=== PATIENT | female | born 1960 | race Caucasian/White ===

== ENCOUNTER 2020-10-08 15:59 | Inpatient (IN) | payer MEDICAID ==
[~2020-10-08] VITALS: Ht 160 cm; Wt 118.0 kg
--- NOTE | 2020-10-08 16:48 | RAD ---
XR CHEST 1V History: Reason: AMS / Spl. Instructions: / History: Comparison: None. Findings: Interstitial thickening. No pleural effusion. No pneumothorax. Right chest wall port. Enlarged cardia c size. Impression: 1. Diffuse interstitial thickening, can be seen with pulmonary edema although a component of chronic interstitial changes is possible. Electronically signed by: Isaac Hatfield DO (10/08/2020 4:46 PM) [id number]
[2020-10-08 16:52] LABS: BASO # 0.1 x10^3/uL (0.0-0.2); BASO % 1 % (0-3); EOS # 0.2 x10^3/uL (0.0-0.7); EOS % 3 % (0-3); HEMATOCRIT 35.6 % (36.0-47.0); HEMOGLOBIN 11.5 g/dL (12.0-15.5); LYMPH # 1.8 x10^3/uL (1.0-4.8); LYMPH % 25 % (24-48); MEAN CORPUSCULAR HEMOGLOBIN 29 pg (25-35); MEAN CORPUSCULAR HGB CONC 33 g/dL (31-37); MEAN CORPUSCULAR VOLUME 90 fL (79-100); MONO # 0.7 x10^3/uL (0.0-1.1); MONO % 10 % (0-9); NEUT # 4.4 x10^3/uL (1.8-7.7); NEUT % 61 % (31-73); PLATELET COUNT 176 x10^3/uL (140-400); RED BLOOD COUNT 3.95 x10^6/uL (3.50-5.40); WHITE BLOOD COUNT 7.3 x10^3/uL (4.0-11.0)
--- NOTE | 2020-10-08 16:56 | PHYS DOC ---
General Adult EDM: Chief Complaint: MULTIPLE COMPLAINTS HPI: HPI: Patient is a 59 year old female who presents with chronic cough, sore throat, chest pain, dizziness, syncope, urinary symptoms, left lower leg wounds with weeping and cellulitis, fatigue for the last month, pelvic pain, loss of smell, body aches, nausea vomiting, shortness of air most of which has been going on for last 1 to 2 weeks. Left lower leg is 2+ swollen compared to the right. Patient is always on 4 L of oxygen and she is 97% oxygen. She has neuropathy in bilateral lower legs. She has a history history of COPD, arthritis, hypertension, diabetes, bronchitis, cervical cancer, migraine, CVA, kidney disease, fibromyalgia, PE, DVT of which she is on Coumadin, stents in legs, cholecystectomy, sinuses, Port-A-Cath in the right chest. She rates her aching pelvic pain 9 out of 10. Review of Systems: Review of Systems: Constitutional: + fever or +chills. [] Eyes: Denies change in visual acuity. [] HENT: + nasal congestion or +sore throat. [] Respiratory: + cough or +shortness of breath. [] Cardiovascular: + chest pain or +edema. [] GI: +pelvic abdominal pain, +nausea, +vomiting, denies bloody stools or diarrhea. [] : +dysuria. [] Musculoskeletal: Denies back pain or joint pain. +Generalized bodyaches [] Integument: Denies rash. [] Neurologic: + headache, denies focal weakness or sensory changes. [] Endocrine: Denies polyuria or polydipsia. [] Lymphatic: Denies swollen glands. [] Psychiatric: + depression or +anxiety. [] Heart Score: HEART Score for Chest Pain: HEART Score for Chest Pain Response (Comments) Value History Slighlty/Non-Suspicious 0 ECG Nonspecific Repolarizatio 1 Age >45 - < 65 1 Risk Factors >3 Risk Factors or Hx CAD 2 Troponin < Normal Limit 0 Total 4 Risk Factors: Risk Factors: DM, Current or recent (<one month) smoker, HTN, HLP, family history of CAD, obesity. Risk Scores: Score 0 - 3: 2.5% MACE over next 6 weeks - Discharge Home Score 4 - 6: 20.3% MACE over next 6 weeks - Admit for Clinical Observation Score 7 - 10: 72.7% MACE over next 6 weeks - Early Invasive Strategies Allergies: Allergies: Allergies Coded Allergies Type Severity Reaction Last Updated Verified Penicillins Allergy Unknown UNKNOWN 10/08/20 Yes aspirin Allergy Unknown UNKNOWN 10/08/20 Yes ceftriaxone Allergy Unknown UNKNOWN 10/08/20 Yes Physical Exam: PE: Constitutional: Well developed, well nourished, no acute distress, non-toxic appearance. [] HENT: Normocephalic, atraumatic, bilateral external ears normal, oropharynx moist, no oral exudates, nose normal. Throat reddened[] Eyes: PERRLA, EOMI, conjunctiva normal, no discharge. [] Neck: Normal range of motion, no tenderness, supple, no stridor. [] Cardiovascular:Heart rate regular rhythm, no murmur [] Lungs & Thorax: Bilateral upper breath sounds clear and lower diminished to auscultation [] Abdomen: Bowel sounds normal, soft, no tenderness, no masses, no pulsatile m asses. [] Skin: Warm, dry, no erythema, no rash. Bilateral lower leg cellulitis, Left lower leg weeping clear fluid [] Back: No tenderness, no CVA tenderness. [] Extremities: No tenderness, no cyanosis, no clubbing, ROM intact, Left lower leg 2+ edema. [] Neurologic: Alert and oriented X 3, normal motor function, normal sensory function, no focal deficits noted. [] Psychologic: Affect normal, judgement normal, mood normal. [] EKG: EK and read by Dr Amaya as Sinus Rhythm and no STEMI Radiology/Procedures: Radiology/Procedures: [] Impression: [facility] [address] [place] [address] IMAGING REPORT Signed PATIENT: ELDA ANDREWS ACCOUNT: [id number] : 1960 LOCATION: ER AGE: 59 SEX: F EXAM STATUS: PRE ER ORD. PHYSICIAN: IBRAHIMA SALEH APRN REASON: AMS PROCEDURE: PORTABLE CHEST 1V XR CHEST 1V History: Reason: AMS / Spl. Instructions: / History: Comparison: None. Findings: Interstitial thickening. No pleural effusion. No pneumothorax. Right chest wall port. Enlarged cardiac size. Impression: 1. Diffuse interstitial thickening, can be seen with pulmonary edema although a component of chronic interstitial changes is possible. Electronically signed by: Isaac Hatfield DO (10/08/2020 4:46 PM) [id number] DICTATED and SIGNED BY: ISAAC HATFIELD DO DATE: 10/08/20 [id number] [facility] [address] [place] [address] IMAGING REPORT Signed PATIENT: ELDA ANDREWS ACCOUNT: [id number] : 1960 LOCATION: ER AGE: 59 SEX: F EXAM STATUS: REG ER ORD. PHYSICIAN: IBRAHIMA SALEH APRN REASON: swelling PROCEDURE: VENOUS LOWER EXTREMITY LEFT Examination: Left Lower Extremity Venous Doppler Ultrasound History: Left lower extremity swelling Comparison: None Procedure: Bailey scale, color flow 2D and spectal waveform analysis images are obtained with and without compression in the area of the common femoral vein, superficial femoral vein - femoral vein junction, main femoral vein (superficial femoral vein) and popliteal vein. Veins of the proximal calf are also imaged. Findings: There is normal duplex flow, color flow and compressibility of all visualized vein segments. No evidence of deep venous thrombus is present. Limited evaluation of the peroneal, posterior tibialis vein due to soft tissue edema. Impression: No evidence of DVT in the left lower extremity venous system.. Electronically signed by: Negro Pardo MD (10/08/2020 5:25 PM) [id number] DICTATED and SIGNED BY: NEGRO PARDO MD DATE: 10/08/20 [id number] [facility] [address] [place], [place] [id number] IMAGING REPORT Signed PATIENT: ELDA ANDREWS ACCOUNT: [id number] : 1960 LOCATION: ER AGE: 59 SEX: F EXAM STATUS: REG ER ORD. PHYSICIAN: IBRAHIMA SALEH APRN REASON: AMS, PUI PROCEDURE: CT HEAD WO CONTRAST EXAM: CT Head without IV contrast CLINICAL HISTORY: Altered mental status COMPARISON: None. TECHNIQUE: Routine CT of the head without contrast. PQRS compliance statement - One or more of the following individualized dose reduction techniques were utilized for this study: 1. Automated exposure control 2. Adjustment of the mA and/or kV according to patient size 3. Use of iterative reconstruction technique FINDINGS: There is no evidence of hemorrhage, mass or extra-axial fluid collection. Heaton-white differentiation is maintained with no evidence of edema. Subcortical, periventricular as well as deep white matter foci of hypoattenuation likely changes of chronic small vessel disease. Lacunar infarct left basal ganglia There is no mass effect or shift of the intracranial structures. The ventricles, basilar cisterns and cortical sulci are normal in size and configuration for the patients stated age. The cerebellum and brainstem are unremarkable. The calvarium demonstrates no evidence of fracture or focal lesion. There is normal aeration of the visualized paranasal sinuses and mastoid air cells. The visualized portions of the orbits are normal. IMPRESSION: 1. No evidence for acute intracranial process. 2. White matter changes, likely chronic small vessel disease. If there is clinical concern for superimposed acute infarct, MRI is recommended. Old lacunar infarct left basal ganglia. Electronically signed by: Rory Wheat MD (10/08/2020 6:47 PM) [facility] DICTATED and SIGNED BY: RORY WHEAT MD DATE: 10/08/20 [id number] [facility] [address] [place] [address] IMAGING REPORT Signed PATIENT: ELDA ANDREWS ACCOUNT: [id number] : 1960 LOCATION: ER AGE: 59 SEX: F EXAM STATUS: REG ER ORD. PHYSICIAN: IBRAHIMA SALEH APRN REASON: ABD PAIN, VOMITING, FEVER, PUI PROCEDURE: CT ABDOMEN PELVIS WO CONTRAST EXAM: CT Abdomen and Pelvis without IV contrast CLINICAL HISTORY: ABD PAIN, VOMITING, FEVER COMPARISON: none TECHNIQUE: Helical CT of the abdomen and pelvis was performed without the administration of IV contrast. Axial, coronal and sagittal reformatted images were generated. ---PQRS compliance statement - One or more of the following individualized dose reduction techniques were utilized for this study: 1. Automated exposure control 2. Adjustment of the mA and/or kV according to patient size 3. Use of iterative reconstruction technique--- FINDINGS: Lack of intravenous contrast limits evaluation of solid organs, vasculature, and lymph nodes. Lower chest: Linear and bandlike opacities lower lobes likely scarring/ate lectasis. Groundglass opacities dependently. Abdomen and pelvis: Visualized portions of the liver are grossly unremarkable. Accounting for postcholecystectomy change, no biliary ductal dilatation. Spleen is unremarkable. Adrenals are unremarkable. There has been a left nephrectomy. No focal right renal lesion. No right hydronephrosis or hydroureter. Bladder is unremarkable. No definite residual or recurrent mass within the surgical bed of the left kidney. A few small lymph nodes are seen in the retroperitoneum. Moderate colonic stool content is seen. No small or large bowel dilatation. No bowel obstruction. Appendix is normal. Small duodenal diverticulum is seen. Left common and external iliac vein stent is seen. Vascular collaterals are seen within the anterior pelvic wall. Fat-containing periumbilical hernia is seen. A left inguinal lymph node measures 2.9 x 1.5 cm. Enlarged right inguinal lymph nodes are also seen. 9 mm mesenteric lymph nodes are seen in the left lower quadrant. Bones: Mild degenerative changes of spine are seen. No aggressive osseous lesion. IMPRESSION: 1. Moderate to large volume colonic stool content can be correlated for possible constipation. No bowel obstruction. 2. Appendix is normal. 3. Fat-containing periumbilical hernia is seen. 4. Groundglass opacities dependently, particularly left lower lobe likely atelectasis or atypical infectious/proliferative process. 5. By the enlarged inguinal lymph nodes are nonspecific, possibly reactive. Electronically signed by: Rory Wheat MD (10/08/2020 6:54 PM) [facility] DICTATED and SIGNED BY: RORY WHEAT MD DATE: 10/08/20 [id number] Course & Med Decision Making: Course & Med Decision Making Pertinent Labs and Imaging studies reviewed. (See chart for details) COVID-19 CRITERIA: The patient was evaluated during the global COVID-19 pandemic, and that diagnosis was suspected/considered upon their initial presentation. Their evaluation, treatment and testing was consistent with current guidelines for patients who present with complaints or symptoms that may be related to COVID-19. See HPI. Alert and oriented x4. Speaks in full complete sentences. Pedal pulses present. Cap refill less than 2 seconds. Lungs are clear in upper lobes and diminished in lower lobes. Wounds on left lower leg look to been blisters that have popped and weeping clear fluid. Cellulitis bilateral lower legs. Left lower leg is 2+ edema. Throat is reddened but not swollen. X-ray impression: 1. Diffuse interstitial thickening, can be seen with pulmonary edema although a component of chronic interstitial changes is possible. Patient has never been here before therefore there are are no labs to look back in for lifetime summary. She does have known kidney disease and her kidney function is elevated. Urinalysis shows no infection. BNP is normal. Patient is given Solu-Medrol in the ED. I have spoken to Dr. Manzano for admission for left lower leg wound with cellulitis. I will consult ID and pulmonary. Dr Amaya states to start the patient on Zyvox. Ultrasound of the left lower extremity shows no DVT. [] Dragon Disclaimer: Dragon Disclaimer: This electronic medical record was generated, in whole or in part, using a voice recognition dictation system. COVID-19 Patient Risks: Age 65 or older: No Sign of co-morbidity: Yes Exp to person + for COVID: No Exp to PUI: No Travel from affected area: No Lower respiratory symptoms: Yes Fever: No Other: Yes (loss of smell, N,V, HEADACHE) PPE Use: Full PPE with N95 mask or PAPR: Yes Departure Departure Impression: Primary Impression: Person under investigation for COVID-19 Additional Impressions: Pneumonia Qualified Codes: J18.9 - Pneumonia, unspecified organism Cellulitis Qualified Codes: L03.116 - Cellulitis of left lower limb Disposition: 09 ADMITTED INPT THIS HOSP Admitting Physician: ARIEL Condition: STABLE IBRAHIMA SALEH CHEMISTRY INSTRUCTOR Oct 08, 2020 16:56
--- NOTE | 2020-10-08 17:27 | RAD ---
Examination: Left Lower Extremity Venous Doppler Ultrasound History: Left lower extremity swelling Comparison: None Procedure: Bailey scale, color flow 2D and spectal waveform analysis images are obtained with and witho ut compression in the area of the common femoral vein, superficial femoral vein - femoral vein juncti on, main femoral vein (superficial femoral vein) and popliteal vein. Veins of the proximal calf are a lso imaged. Findings: There is normal duplex flow, color flow and compressibility of all visualized vein segments. No evide nce of deep venous thrombus is present. Limited evaluation of the peroneal, posterior tibialis vein d ue to soft tissue edema. Impression: No evidence of DVT in the left lower extremity venous system.. Electronically signed by: Negro Luong MD (10/08/2020 5:25 PM) [id number]
[2020-10-08 17:33] LABS: CALCIUM 10.9 mg/dL (8.5-10.1); CREATININE 1.1 mg/dL (0.6-1.0); GFR 50.8; POTASSIUM 3.9 mmol/L (3.5-5.1)
[2020-10-08 17:39] LABS: ALBUMIN 3.2 g/dL (3.4-5.0); ALBUMIN/GLOBULIN RATIO 0.9 (1.0-1.7); TOTAL BILIRUBIN 0.3 mg/dL (0.2-1.0); TOTAL PROTEIN 6.9 g/dL (6.4-8.2)
[2020-10-08 17:39] LABS: BILIRUBIN,URINE NEGATIVE (NEG); CLARITY,URINE CLEAR; COLOR,URINE YELLOW; NITRITE,URINE NEGATIVE (NEG); PROTEIN,URINE NEGATIVE (NEG-TRACE)
[2020-10-08 17:44] LABS: BACTERIA,URINE MODERATE /HPF (0-FEW); RBC,URINE 0 /HPF (0-2); WBC,URINE OCC /HPF (0-4)
[2020-10-08 17:46] LABS: AMPHETAMINE/METHAMPHETAMINE NEG (NEG); BARBITURATES NEG (NEG); BENZODIAZEPINES NEG (NEG); CANNABINOIDS NEG (NEG); COCAINE NEG (NEG); METHADONE NEG (NEG); OPIATES NEG (NEG); PHENCYCLIDINE NEG (NEG)
[2020-10-08] MEDS ORDERED: methylPREDNISolone SOD SUCC PF 125 MG/2 ML VIAL. IV ONE (18:15)
[2020-10-08] MEDS ORDERED: ONDANSETRON PF 4 MG/2 ML VIAL. IV PRN (18:30)
[2020-10-08] MEDS ORDERED: guaiFENesin/CODEINE 100mg/10mg 5 ML LIQUID PO PRN (18:45)
[2020-10-08] MEDS ORDERED: ASPIRIN CHEWABLE 81 MG TABLET. PO ONE (18:45)
--- NOTE | 2020-10-08 18:50 | RAD ---
ADDENDUM #1 Addendum: Reformatted images using bone algorithm were now provided for evaluation. No calvarial fracture is seen. Thickening of the maxillary sinuses likely sinusitis. Electronically signed by: Rory Hendricks MD (10/08/2020 7:05 PM) [facility] ORIGINAL REPORT EXAM: CT Head without IV contrast CLINICAL HISTORY: Altered mental status COMPARISON: None. TECHNIQUE: Routine CT of the head without contrast. PQRS compliance statement - One or more of the following individualized dose reduction techniques wer e utilized for this study: 1. Automated exposure control 2. Adjustment of the mA and/or kV according to patient size 3. Use of iterative reconstruction technique FINDINGS: There is no evidence of hemorrhage, mass or extra-axial fluid collection. Heaton-white differentiation is maintained with no evidence of edema. Subcortical, periventricular as w ell as deep white matter foci of hypoattenuation likely changes of chronic small vessel disease. Lacu selena infarct left basal ganglia There is no mass effect or shift of the intracranial structures. The ventricles, basilar cisterns and cortical sulci are normal in size and configuration for the wilbert ents stated age. The cerebellum and brainstem are unremarkable. The calvarium demonstrates no evidence of fracture or focal lesion. There is normal aeration of the visualized paranasal sinuses and mastoid air cells. The visualized portions of the orbits are normal. IMPRESSION: 1. No evidence for acute intracranial process. 2. White matter changes, likely chronic small vessel disease. If there is clinical concern for super imposed acute infarct, MRI is recommended. Old lacunar infarct left basal ganglia. Electronically signed by: Rory Hendricks MD (10/08/2020 6:47 PM) JAKE
--- NOTE | 2020-10-08 18:57 | RAD ---
EXAM: CT Abdomen and Pelvis without IV contrast CLINICAL HISTORY: ABD PAIN, VOMITING, FEVER COMPARISON: none TECHNIQUE: Helical CT of the abdomen and pelvis was performed without the administration of IV contra st. Axial, coronal and sagittal reformatted images were generated. ---PQRS compliance statement - One or more of the following individualized dose reduction techniques were utilized for this study: 1. Automated exposure control 2. Adjustment of the mA and/or kV according to patient size 3. Use of iterative reconstruction technique--- FINDINGS: Lack of intravenous contrast limits evaluation of solid organs, vasculature, and lymph nodes. Lower chest: Linear and bandlike opacities lower lobes likely scarring/atelectasis. Groundglass opaci ties dependently. Abdomen and pelvis: Visualized portions of the liver are grossly unremarkable. Accounting for postcholecystectomy change, no biliary ductal dilatation. Spleen is unremarkable. Adrenals are unremarkable. There has been a le ft nephrectomy. No focal right renal lesion. No right hydronephrosis or hydroureter. Bladder is unrem arkable. No definite residual or recurrent mass within the surgical bed of the left kidney. A few sm all lymph nodes are seen in the retroperitoneum. Moderate colonic stool content is seen. No small or large bowel dilatation. No bowel obstruction. Lory endix is normal. Small duodenal diverticulum is seen. Left common and external iliac vein stent is seen. Vascular collaterals are seen within the anterior pelvic wall. Fat-containing periumbilical hernia is seen. A left inguinal lymph node measures 2.9 x 1.5 cm. Enlarg ed right inguinal lymph nodes are also seen. 9 mm mesenteric lymph nodes are seen in the left lower q uadrant. Bones: Mild degenerative changes of spine are seen. No aggressive osseous lesion. IMPRESSION: 1. Moderate to large volume colonic stool content can be correlated for possible constipation. No valerie wel obstruction. 2. Appendix is normal. 3. Fat-containing periumbilical hernia is seen. 4. Groundglass opacities dependently, particularly left lower lobe likely atelectasis or atypical in fectious/proliferative process. 5. By the enlarged inguinal lymph nodes are nonspecific, possibly reactive. Electronically signed by: Rory Hendricks MD (10/08/2020 6:54 PM) [facility]GIN[facility]
[2020-10-08] MEDS ORDERED: AZITHRMYCN 500MG IVPB FOR OMNI 250 ML IV ONE (19:00)
--- NOTE | 2020-10-08 19:40 | HP ---
ADMIT DATE: 10/08/2020 CHIEF COMPLAINT: Multiple complaints. HISTORY OF PRESENT ILLNESS: The patient is a pleasant, morbidly obese female who has many, many, many medical problems and sees many, many doctors. She brought in a list of all of her medical care. It is quite daunting. Basically, today she is now complaining of sore throat, cough, chest pain, dizziness, syncope, urinary symptoms, left lower leg wounds and fatigue for the past month. She also has some pelvic pain and loss of smell and body aches and nausea, vomiting, shortness of breath. This has been going on for 2 weeks. The left lower extremity is also swollen. Apparently, she wears 4 liters of oxygen at home. Clinically, we were concerned she could have COVID-19. We did a chest x-ray, which shows diffuse interstitial thickening. I discussed the case with ER physician. We are going to admit the patient and consult Infectious Disease and Pulmonary. PAST MEDICAL AND SURGICAL HISTORY: Morbid obesity, polypharmacy, probable psychiatric issues, allergic rhinitis, chronic sinusitis, chronic obstructive pulmonary disease, chronic respiratory failure and she is on home O2, UTI, asthma, hyperlipidemia, peripheral vascular disease, varicose veins, May-Thurner syndrome, recurrent DVT, peripheral vascular surgery 2 years ago with stenting, chronic migraines, polyneuropathy, cystitis, cataract surgery, laryngoscopy, lung biopsy, endometrial biopsy, nasal surgery, left nephrectomy, partial parathyroidectomy, chronic kidney disease stage 3, generalized anxiety disorder, major depression disorder, glucocorticoid deficiency, primary hyperparathyroidism, diabetes, tonsillectomy, hysterectomy, tympanoplasty, pulmonary embolism and Port-A-Cath placement and chronic anticoagulation and stents in both legs, cervical cancer. ALLERGIES: CEPHALEXIN, IODINE, PENICILLIN, SULFA, ADHESIVE TAPE, ASPIRIN, AZITHROMYCIN, BEE POLLEN, CEFTRIAXONE, CIPRO, CLARITHROMYCIN, CLINDAMYCIN, DOXYCYCLINE, ESTROGENS and there are many more. Please refer to the chart. FAMILY HISTORY: Hypertension, coronary artery disease, depression, breast cancer, COPD, CAD, diabetes, fibromyalgia, hyperlipidemia, hypertension, lung cancer, throat cancer, migraines. SOCIAL HISTORY: I do not think she drinks or takes drugs. I think she used to smoke. MEDICATIONS: Reviewed, please refer to the MRAD. REVIEW OF SYSTEMS: GENERAL: She complains of weakness. SKIN: No bruising, hair changes or rashes. EYES: No blurred, double or loss of vision. NOSE AND THROAT: No history of nosebleeds, hoarseness or sore throat. HEART: She complains of chest pain. LUNGS: She complains of shortness of breath and coughing. GASTROINTESTINAL: Denies changes in appetite, nausea, vomiting, diarrhea or constipation. GENITOURINARY: She complains of recent urinary symptoms consistent with possible urinary tract infection. NEUROLOGIC: She complains of dizziness and syncope. PSYCHIATRIC: No history of panic, anxiety or depression. ENDOCRINE: No history of heat or cold intolerance, polyuria or polydipsia. EXTREMITIES: She complains of left lower extremity swelling and weeping from chronic wounds. PHYSICAL EXAMINATION: VITALS: Within normal limits and are stable. GENERAL: She is weak and morbidly obese. HEENT: Normal cephalic atraumatic, external auditory canals are patent EYES: Extraocular muscles are intact, pupils are equally round and reactive to light and accommodation MUSCULOSKELETAL: Well developed, well nourished, good range of motion ENDOCRINE: No thyromegaly was palpated LYMPHATICS: No cervical chain or axillary nodes were noted HEMATOPOIETIC: No bruising NECK: Supple, no JVD, no thyromegaly was noted. LUNGS: She has bibasilar crackles. HEART: RRR, S1, S2 present. Peripheral pulses intact, no obvious murmurs were noted. ABDOMEN: Soft, nontender. Positive bowel sounds no organomegaly, normal bowel sounds. EXTREMITIES: She has a large wound that is dressed on the left lower extremity. NEUROLOGIC: Normal speech, normal tone. A & O x3, moves all extremities, no obvious focal deficits. PSYCHIATRIC: Normal affect, normal mood. Stable. SKIN: No ulcerations or rashes, good skin turgor, no jaundice. VASCULAR: Good capillary refill, neurovascular bundle appears to be intact. DIAGNOSTIC DATA: CT of the chest was just done. Results are pending. Lower extremity ultrasound is negative for DVT. Chest x-ray shows diffuse interstitial thickening. LABORATORY DATA: White count 7.3, hemoglobin 11.5, platelets 176. Electrolytes: Sodium 140, potassium 3.9, chloride 104, bicarbonate 31, BUN 28, creatinine 1.1, glucose 99, calcium 10.9. Troponin is 0. Urinalysis is negative. Drug screen negative. ASSESSMENT AND PLAN: Multiple complaints. We are concerned she could have COVID-19 as she does have a cough, shortness of breath, sore throat, weakness, nausea, vomiting and sometimes loss of her taste. The patient is being admitted. We will consult Infectious Disease, consult Pulmonary Medicine, swab her for COVID-19, p.r.n. Lilianafran. We started her on IV methylprednisolone. We will consider remdesivir if she tests positive. I will start other COVID protocol including IV antibiotics, vitamins, oxygen, cough syrup, aspirin, etc. DVT prophylaxis, p.r.n. Zofran, IV Zyvox. PROGNOSIS: Guarded. CC TIME: 33 minutes. TYRA SALES DO DR: KONSTANTIN/omari JOB#: [id number] / [id number]
[2020-10-08 21:12] VITALS: BP 142/92
--- NOTE | 2020-10-08 21:12 | NUR ---
The patient, ELDA ANDREWS, 59 y/o, F admitted by TYRA SALES III, DO, was given written information regarding hospital policies, unit procedures and contact persons. Valuables were checked and left with her.
--- NOTE | 2020-10-08 21:50 | NUR ---
Patient did not bring medication list to hospital. Patient states she will have her call in medication list in am.
[2020-10-08 23:00] VITALS: BP 157/67
[2020-10-09 00:31] LABS: INFLUENZA A PATIENT NEGATIVE (NEGATIVE); INFLUENZA B PATIENT NEGATIVE (NEGATIVE)
[2020-10-09 03:13] VITALS: BP 143/59
[2020-10-09 07:00] VITALS: BP 168/76
[2020-10-09] MEDS: MULTIVITAMIN with MINERAL TABLET. PO SCH (08:20)
--- NOTE | 2020-10-09 09:30 | PDOC ---
PULMONARY PROGRESS NOTES DATE: 10/09/20 TIME: 09:29 Vitals Vital Signs Date Time Temp Pulse Resp B/P (MAP) Pulse Ox O2 Delivery O2 Flow Rate FiO2 10/09/20 07:00 97.5 88 20 168/76 (106) Nasal Cannula 3.0 97.5 10/09/20 03:13 93 Labs Laboratory Tests Test 10/08/20 16:30 10/08/20 17:30 10/09/20 08:19 White Blood Count 7.3 x10^3/uL (4.0-11.0) Red Blood Count 3.95 x10^6/uL (3.50-5.40) Hemoglobin 11.5 g/dL (12.0-15.5) Hematocrit 35.6 % (36.0-47.0) Mean Corpuscular Volume 90 fL (79-100) Mean Corpuscular Hemoglobin 29 pg (25-35) Mean Corpuscular Hemoglobin Concent 33 g/dL (31-37) Red Cell Distribution Width 15.0 % (11.5-14.5) Platelet Count 176 x10^3/uL (140-400) Neutrophils (%) (Auto) 61 % (31-73) Lymphocytes (%) (Auto) 25 % (24-48) Monocytes (%) (Auto) 10 % (0-9) Eosinophils (%) (Auto) 3 % (0-3) Basophils (%) (Auto) 1 % (0-3) Neutrophils # (Auto) 4.4 x10^3/uL (1.8-7.7) Lymphocytes # (Auto) 1.8 x10^3/uL (1.0-4.8) Monocytes # (Auto) 0.7 x10^3/uL (0.0-1.1) Eosinophils # (Auto) 0.2 x10^3/uL (0.0-0.7) Basophils # (Auto) 0.1 x10^3/uL (0.0-0.2) Sodium Level 140 mmol/L (136-145) Potassium Level 3.9 mmol/L (3.5-5.1) Chloride Level 104 mmol/L (98-107) Carbon Dioxide Level 31 mmol/L (21-32) Anion Gap 5 (6-14) Blood Urea Nitrogen 28 mg/dL (7-20) Creatinine 1.1 mg/dL (0.6-1.0) Estimated GFR (Cockcroft-Gault) 50.8 BUN/Creatinine Ratio 25 (6-20) Glucose Level 99 mg/dL (70-99) Lactic Acid Level 0.9 mmol/L (0.4-2.0) Calcium Level 10.9 mg/dL (8.5-10.1) Total Bilirubin 0.3 mg/dL (0.2-1.0) Aspartate Amino Transf (AST/SGOT) 19 U/L (15-37) Alanine Aminotransferase (ALT/SGPT) 22 U/L (14-59) Alkaline Phosphatase 109 U/L (46-116) Troponin I Quantitative < 0.017 ng/mL (0.000-0.055) MI-Kgu-O-Type Natriuretic Peptide 34 pg/mL (0-124) Total Protein 6.9 g/dL (6.4-8.2) Albumin 3.2 g/dL (3.4-5.0) Albumin/Globulin Ratio 0.9 (1.0-1.7) Influenza Type A Antigen Negative (NEGATIVE) Influenza Type B Antigen Negative (NEGATIVE) Urine Collection Type U cath Urine Color Yellow Urine Clarity Clear Urine pH 6.0 (<5.0-8.0) Urine Specific [place] 1.020 (1.000-1.030) Urine Protein Negative mg/dL (NEG-TRACE) Urine Glucose (UA) Negative mg/dL (NEG) Urine Ketones (Stick) Negative mg/dL (NEG) Urine Blood Negative (NEG) Urine Nitrite Negative (NEG) Urine Bilirubin Negative (NEG) Urine Urobilinogen Dipstick 1.0 mg/dL (0.2 mg/dL) Urine Leukocyte Esterase Negative (NEG) Urine RBC 0 /HPF (0-2) Urine WBC Occ /HPF (0-4) Urine Squamous Epithelial Cells Mod /LPF Urine Bacteria Moderate /HPF (0-FEW) Urine Opiates Screen Neg (NEG) Urine Methadone Screen Neg (NEG) Urine Barbiturates Neg (NEG) Urine Phencyclidine Screen Neg (NEG) Urine Amphetamine/Methamphetamine Neg (NEG) Urine Benzodiazepines Screen Neg (NEG) Urine Cocaine Screen Neg (NEG) Urine Cannabinoids Screen Neg (NEG) Urine Ethyl Alcohol Neg (NEG) Glucose (Fingerstick) 174 mg/dL (70-99) Laboratory Tests Test 10/08/20 16:30 10/08/20 17:30 10/09/20 08:19 White Blood Count 7.3 x10^3/uL (4.0-11.0) Red Blood Count 3.95 x10^6/uL (3.50-5.40) Hemoglobin 11.5 g/dL (12.0-15.5) Hematocrit 35.6 % (36.0-47.0) Mean Corpuscular Volume 90 fL (79-100) Mean Corpuscular Hemoglobin 29 pg (25-35) Mean Corpuscular Hemoglobin Concent 33 g/dL (31-37) Red Cell Distribution Width 15.0 % (11.5-14.5) Platelet Count 176 x10^3/uL (140-400) Neutrophils (%) (Auto) 61 % (31-73) Lymphocytes (%) (Auto) 25 % (24-48) Monocytes (%) (Auto) 10 % (0-9) Eosinophils (%) (Auto) 3 % (0-3) Basophils (%) (Auto) 1 % (0-3) Neutrophils # (Auto) 4.4 x10^3/uL (1.8-7.7) Lymphocytes # (Auto) 1.8 x10^3/uL (1.0-4.8) Monocytes # (Auto) 0.7 x10^3/uL (0.0-1.1) Eosinophils # (Auto) 0.2 x10^3/uL (0.0-0.7) Basophils # (Auto) 0.1 x10^3/uL (0.0-0.2) Sodium Level 140 mmol/L (136-145) Potassium Level 3.9 mmol/L (3.5-5.1) Chloride Level 104 mmol/L (98-107) Carbon Dioxide Level 31 mmol/L (21-32) Anion Gap 5 (6-14) Blood Urea Nitrogen 28 mg/dL (7-20) Creatinine 1.1 mg/dL (0.6-1.0) Estimated GFR (Cockcroft-Gault) 50.8 BUN/Creatinine Ratio 25 (6-20) Glucose Level 99 mg/dL (70-99) Lactic Acid Level 0.9 mmol/L (0.4-2.0) Calcium Level 10.9 mg/dL (8.5-10.1) Total Bilirubin 0.3 mg/dL (0.2-1.0) Aspartate Amino Transf (AST/SGOT) 19 U/L (15-37) Alanine Aminotransferase (ALT/SGPT) 22 U/L (14-59) Alkaline Phosphatase 109 U/L (46-116) Troponin I Quantitative < 0.017 ng/mL (0.000-0.055) QI-Ntd-X-Type Natriuretic Peptide 34 pg/mL (0-124) Total Protein 6.9 g/dL (6.4-8.2) Albumin 3.2 g/dL (3.4-5.0) Albumin/Globulin Ratio 0.9 (1.0-1.7) Influenza Type A Antigen Negative (NEGATIVE) Influenza Type B Antigen Negative (NEGATIVE) Urine Collection Type U cath Urine Color Yellow Urine Clarity Clear Urine pH 6.0 (<5.0-8.0) Urine Specific [place] 1.020 (1.000-1.030) Urine Protein Negative mg/dL (NEG-TRACE) Urine Glucose (UA) Negative mg/dL (NEG) Urine Ketones (Stick) Negative mg/dL (NEG) Urine Blood Negative (NEG) Urine Nitrite Negative (NEG) Urine Bilirubin Negative (NEG) Urine Urobilinogen Dipstick 1.0 mg/dL (0.2 mg/dL) Urine Leukocyte Esterase Negative (NEG) Urine RBC 0 /HPF (0-2) Urine WBC Occ /HPF (0-4) Urine Squamous Epithelial Cells Mod /LPF Urine Bacteria Moderate /HPF (0-FEW) Urine Opiates Screen Neg (NEG) Urine Methadone Screen Neg (NEG) Urine Barbiturates Neg (NEG) Urine Phencyclidine Screen Neg (NEG) Urine Amphetamine/Methamphetamine Neg (NEG) Urine Benzodiazepines Screen Neg (NEG) Urine Cocaine Screen Neg (NEG) Urine Cannabinoids Screen Neg (NEG) Urine Ethyl Alcohol Neg (NEG) Glucose (Fingerstick) 174 mg/dL (70-99) Impression . Full note dictated Concur with current medical regimen See orders Pneumonia, acute exacerbation of asthma, possible pulmonary edema. MILY OVIEDO MD Oct 09, 2020 09:30
--- NOTE | 2020-10-09 09:54 | CONS ---
DATE OF CONSULTATION: 10/09/2020 ATTENDING PHYSICIAN: Dr. Manzano. CONSULTING PHYSICIAN: Mily Oviedo MD REASON FOR CONSULTATION: The patient is seen in pulmonary consultation at the request of Dr. Manzano for abnormal chest x-ray revealing bilateral infiltrates, increasing shortness of breath. HISTORY OF PRESENT ILLNESS: The patient is a 59-year-old with a complex past history, comorbidities of sarcoid diagnosed in 2000, status post mediastinoscopy. She was on steroids for some time. She has underlying COPD, fibromyalgia, previous recurrent DVT and pulmonary embolism. She normally sees several physicians at [facility]. She normally goes to [facility]. As a consequence of the COVID-19 situation, there were no beds available when she came to [facility]. She mainly has all sorts of different complaints of not feeling well, vomiting, and some diarrhea. Not much in regards with shortness of breath. She also had some chronic left lower lobe wounds with weeping areas on the skin. She has had chronic cellulitis. She presented with the above. She underwent venous Dopplers of the lower extremities, which revealed no evidence of DVT. She is currently on some antibiotics she was given. She underwent chest x-ray revealing diffuse interstitial markings compatible with pulmonary edema, possibly chronic interstitial lung disease. She had serology for influenza, which was negative. Her SARS-CoV-2 is pending. Her urine drug screen was negative. UA was noted. Electrolytes were noted. BUN and creatinine are elevated. Albumin was low. Calcium was high. White count was normal. She did not have a lymphopenia. The patient denies any SARS-CoV-2 exposures. PAST MEDICAL HISTORY: As indicated above, sarcoid diagnosed in 2000, status post mediastinoscopy, took steroids. She has underlying COPD, fibromyalgia, DVT, pulmonary embolism, recurrent, is on chronic Coumadin use. She has had previous migraines, previous CVA, hypertension, chronic bronchitis. Never smoked. She is normally on 4 liters of oxygen at home. PAST SURGICAL HISTORY: Status post cholecystectomy. She has a Port-A-Cath in the right chest area. No recent major surgeries. REVIEW OF SYSTEMS: CONSTITUTIONAL: Subjective fever and chills. EYES: No change in visual acuity. HENT: Some nasal congestion and sore throat. PULMONARY: As indicated above. CARDIOVASCULAR: Positive for chest pain. GASTROINTESTINAL: Some abdominal discomfort, nausea, vomiting. GENITOURINARY: She has had some dysuria. MUSCULOSKELETAL: Chronic pain. SKIN: No new skin rashes. NEUROLOGIC: She has chronic headaches. ALLERGIES: SHE HAS MULTIPLE ALLERGIES, PLEASE SEE LIST. FAMILY HISTORY: No family history of lung disorders. SOCIAL HISTORY: She is currently not smoking. PHYSICAL EXAMINATION: GENERAL: The patient appeared to be much older than stated age, currently on 3 liters of oxygen supplementation. HEENT: Eyes, the sclerae were nonicteric. NECK: Jugular venous distention could not be assessed secondary to body habitus. CHEST: Full expansion. LUNGS: Bilateral rhonchi. CARDIOVASCULAR: Regular rate and rhythm with S1, S2, no S3. ABDOMEN: Soft, obese. EXTREMITIES: Dressing in place, chronic cellulitis, chronic edema. NEUROLOGICAL: The patient was awake, alert, following commands. A detailed neuro exam was not performed. LABORATORY DATA: As indicated above. Chest x-ray as indicated above. IMPRESSION: 1. Abnormal x-ray revealing bilateral pulmonary infiltrates, some chronic in nature, possibly interstitial lung disease with concurrent acute pulmonary edema. 2. Chronic respiratory failure. 3. Sarcoid status post mediastinoscopy in 2000. 4. Fibromyalgia. 5. 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 6. Chronic lower extremity cellulitis with new onset of cellulitis. 7. Negative venous Dopplers of lower extremities. 8. Abnormal chest x-ray. 9. Morbid obesity. 10. Hypertension. 11. Diabetes. 12. History of migraine headaches. PLAN: 1. We will continue current support with IV antibiotics. 2. Oxygen supplementation. 3. Follow up on SARS-CoV-2 testing. 4. Continue home Coumadin. 5. Empiric antibiotics for both gram-positive and gram-negative organisms. I do appreciate the privilege in sharing in the patient's care. MILY OVIEDO MD DR: JAGRUTI/omari JOB#: [id number] / [id number]
--- NOTE | 2020-10-09 10:29 | PDOC ---
Infectious Disease Note Vital Signs: Vital Signs Vital Signs Date Time Temp Pulse Resp B/P (MAP) Pulse Ox O2 Delivery O2 Flow Rate FiO2 10/09/20 07:00 97.5 88 20 168/76 (106) Nasal Cannula 3.0 97.5 10/09/20 03:13 93 Medications: Inpatient Meds: Current Medications Medications (Trade) Dose Ordered Sig/Linda Start Time Stop Time Status Last Admin Dose Admin Albuterol/ Ipratropium (Duoneb) 3 ml RTQID 10/09/20 12:00 Aspirin (Aspirin Chewable) 81 mg 1X ONCE 10/08/20 18:45 10/08/20 18:46 UNV Azithromycin 250 ml @ 250 mls/hr 1X ONCE 10/08/20 19:00 10/08/20 19:59 DC Azithromycin 500 mg/Sodium Chloride 250 ml @ 250 mls/hr Q24H 10/09/20 20:00 Guaifenesin/ Codeine Phosphate (Robitussin Ac) 5 ml PRN Q6HRS PRN 10/08/20 18:45 Linezolid/Dextrose 300 ml @ 300 mls/hr Q12HR 10/09/20 11:00 Methylprednisolone Sodium Succinate (SOLU-Medrol 40MG VIAL) 62.5 mg BID 10/09/20 10:30 Methylprednisolone Sodium Succinate (SOLU-Medrol 125MG VIAL) 90 mg 1X ONCE 10/08/20 18:15 10/08/20 18:16 DC 10/08/20 18:44 90 MG Multivitamins (Thera M Plus) 1 tab DAILY 10/09/20 09:00 10/09/20 08:20 1 TAB Ondansetron HCl (Zofran) 4 mg PRN Q8HRS PRN 10/08/20 18:30 10/09/20 18:29 Labs: Lab Laboratory Tests Test 10/08/20 16:30 10/08/20 17:30 10/09/20 08:19 White Blood Count 7.3 x10^3/uL (4.0-11.0) Red Blood Count 3.95 x10^6/uL (3.50-5.40) Hemoglobin 11.5 g/dL (12.0-15.5) Hematocrit 35.6 % (36.0-47.0) Mean Corpuscular Volume 90 fL (79-100) Mean Corpuscular Hemoglobin 29 pg (25-35) Mean Corpuscular Hemoglobin Concent 33 g/dL (31-37) Red Cell Distribution Width 15.0 % (11.5-14.5) Platelet Count 176 x10^3/uL (140-400) Neutrophils (%) (Auto) 61 % (31-73) Lymphocytes (%) (Auto) 25 % (24-48) Monocytes (%) (Auto) 10 % (0-9) Eosinophils (%) (Auto) 3 % (0-3) Basophils (%) (Auto) 1 % (0-3) Neutrophils # (Auto) 4.4 x10^3/uL (1.8-7.7) Lymphocytes # (Auto) 1.8 x10^3/uL (1.0-4.8) Monocytes # (Auto) 0.7 x10^3/uL (0.0-1.1) Eosinophils # (Auto) 0.2 x10^3/uL (0.0-0.7) Basophils # (Auto) 0.1 x10^3/uL (0.0-0.2) Sodium Level 140 mmol/L (136-145) Potassium Level 3.9 mmol/L (3.5-5.1) Chloride Level 104 mmol/L (98-107) Carbon Dioxide Level 31 mmol/L (21-32) Anion Gap 5 (6-14) Blood Urea Nitrogen 28 mg/dL (7-20) Creatinine 1.1 mg/dL (0.6-1.0) Estimated GFR (Cockcroft-Gault) 50.8 BUN/Creatinine Ratio 25 (6-20) Glucose Level 99 mg/dL (70-99) Lactic Acid Level 0.9 mmol/L (0.4-2.0) Calcium Level 10.9 mg/dL (8.5-10.1) Total Bilirubin 0.3 mg/dL (0.2-1.0) Aspartate Amino Transf (AST/SGOT) 19 U/L (15-37) Alanine Aminotransferase (ALT/SGPT) 22 U/L (14-59) Alkaline Phosphatase 109 U/L (46-116) Troponin I Quantitative < 0.017 ng/mL (0.000-0.055) MM-Znm-U-Type Natriuretic Peptide 34 pg/mL (0-124) Total Protein 6.9 g/dL (6.4-8.2) Albumin 3.2 g/dL (3.4-5.0) Albumin/Globulin Ratio 0.9 (1.0-1.7) Influenza Type A Antigen Negative (NEGATIVE) Influenza Type B Antigen Negative (NEGATIVE) Urine Collection Type U cath Urine Color Yellow Urine Clarity Clear Urine pH 6.0 (<5.0-8.0) Urine Specific [place] 1.020 (1.000-1.030) Urine Protein Negative mg/dL (NEG-TRACE) Urine Glucose (UA) Negative mg/dL (NEG) Urine Ketones (Stick) Negative mg/dL (NEG) Urine Blood Negative (NEG) Urine Nitrite Negative (NEG) Urine Bilirubin Negative (NEG) Urine Urobilinogen Dipstick 1.0 mg/dL (0.2 mg/dL) Urine Leukocyte Esterase Negative (NEG) Urine RBC 0 /HPF (0-2) Urine WBC Occ /HPF (0-4) Urine Squamous Epithelial Cells Mod /LPF Urine Bacteria Moderate /HPF (0-FEW) Urine Opiates Screen Neg (NEG) Urine Methadone Screen Neg (NEG) Urine Barbiturates Neg (NEG) Urine Phencyclidine Screen Neg (NEG) Urine Amphetamine/Methamphetamine Neg (NEG) Urine Benzodiazepines Screen Neg (NEG) Urine Cocaine Screen Neg (NEG) Urine Cannabinoids Screen Neg (NEG) Urine Ethyl Alcohol Neg (NEG) Glucose (Fingerstick) 174 mg/dL (70-99) Objective: Assessment: Patient seen and examined ID consult dictated Plan: Plan of Care Thank you VANDANA BORDEN MD Oct 09, 2020 10:29
[2020-10-09] MEDS ORDERED: DULO60CA6 PO (10:37)
[2020-10-09] MEDS ORDERED: ZONI100C33 PO (10:37)
[2020-10-09] MEDS ORDERED: GABA300C18 PO (10:39)
[2020-10-09] MEDS ORDERED: ISOS30TA68 PO (10:39)
[2020-10-09] MEDS ORDERED: TRAM50TA PO (10:50)
[2020-10-09] MEDS ORDERED: MONT10TA49 PO (10:50)
[2020-10-09] MEDS ORDERED: ATOR80TA72 PO (10:50)
[2020-10-09] MEDS ORDERED: ROPI1TAB4 PO (10:50)
[2020-10-09] MEDS ORDERED: FLUT1DIS5 IH (10:56)
[2020-10-09] MEDS ORDERED: ERGO500089 PO (10:56)
[2020-10-09] MEDS ORDERED: ESTR30CR VG (10:56)
[2020-10-09] MEDS ORDERED: WARF1TAB69 PO (10:56)
[2020-10-09] MEDS ORDERED: ONDA4TAB7 PO (10:56)
[2020-10-09] MEDS ORDERED: WARF10TA40 PO (10:56)
--- NOTE | 2020-10-09 10:57 | NUR ---
Called the patient's pharmacy at [facility], spoke with the pharmacist at 0940. Home meds reviewed and entered on the patient's chart.
[2020-10-09 11:00] VITALS: BP 142/85
[2020-10-09] MEDS: methylPREDNISolone SOD SUCC PF 40 MG/ML VIAL. IV SCH ×2 (11:39→23:00)
[2020-10-09] MEDS: IPRATRPIUM/ALBUTEROL 0.5/2.5MG 3 ML NEBU. NEB SCH ×3 (11:47→20:00)
[2020-10-09] MEDS ORDERED: ONDANSETRON ODT 4 MG TAB.RAPDIS. PO PRN (12:15)
[2020-10-09] MEDS: ISOSORBIDE MONONITRATE ER 30 MG TAB.ER.24H PO SCH (14:24)
[2020-10-09] MEDS: DULoxetine HCL 30 MG CAPSULE.DR PO SCH (14:24)
[2020-10-09] MEDS: GABAPENTIN 300 MG CAPSULE. PO SCH ×2 (14:25→23:01)
[2020-10-09] MEDS: rOPINIRole 1 MG TABLET. PO SCH (14:25)
[2020-10-09] MEDS: ZONISAMIDE 100 MG CAPSULE. PO SCH (14:26)
[2020-10-09] MEDS ORDERED: SODI30SP NS (14:57)
[2020-10-09 15:00] VITALS: BP 149/65
--- NOTE | 2020-10-09 15:10 | PDOC ---
[employer] PROGRESS NOTE Date of Service DOS: DATE: 10/09/20 TIME: 15:05 Chief Complaint Chief Complaint Generalized malaise due to CAP versus COVID-19 infection Investigation for COVID-19 infection Sarcoid status post mediastinoscopy in 2000. Fibromyalgia. 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 Chronic lower extremity cellulitis with new onset of cellulitis. Negative venous Dopplers of lower extremities. Abnormal chest x-ray. Morbid obesity. Hypertension. Diabetes. History of migraine headaches. Continue medical management Appreciate pulmonology recommendationscontinue O2 supplementation and empiric IV antibiotics Pending ID consult Pending wound care consult for left lower extremity cellulitis Continue warfarin home dose for DVT and pulmonary embolism PT OT IV pain control Pending Covid test PCR Resume all home medications Warfarin for DVT prophylaxis ADA diet Full code Discussed with RN and SW Disposition inpatient management as above Surrogate decision maker is Lazarus Barillas History of Present Illness History of Present Illness 10/09/2020 No acute events overnight. Patient is sitting in the recliner and states she is feeling okay. States that he tries to smile because she has some knee problems. She did have a bowel movement this morning which she said that relieved her back pain. But she does still describe some dyspnea even at rest. Patient's chart, labs, images were reviewed and discussed with RN 59-year-old morbidly obese female who has many, many, many medical problems and sees many, many doctors. She brought in a list of all of her medical care. It is quite daunting. Basically, today she is now complaining of sore throat, cough, chest pain, dizziness, syncope, urinary symptoms, left lower leg wounds and fatigue for the past month. She also has some pelvic pain and loss of smell and body aches and nausea, vomiting, shortness of breath. This has been going on for 2 weeks. The left lower extremity is also swollen. Apparently, she wears 4 liters of oxygen at home. Clinically, we were concerned she could have COVID-19. We did a chest x-ray, which shows diffuse interstitial thickening. I discussed the case with ER physician. We are going to admit the patient and consult Infectious Disease and Pulmonary. Vitals/I&O Vitals/I&O: Vital Signs Date Time Temp Pulse Resp B/P (MAP) Pulse Ox O2 Delivery O2 Flow Rate FiO2 10/09/20 14:24 82 142/85 10/09/20 11:00 95.8 20 94 Nasal Cannula 3.0 95.8 I & O 10/08/20 10/08/20 10/09/20 15:00 23:00 07:00 Intake Total 300 ml 300 ml Balance 300 ml 300 ml Labs Labs: Laboratory Tests Test 10/08/20 16:30 10/08/20 17:30 10/09/20 08:19 White Blood Count 7.3 x10^3/uL (4.0-11.0) Red Blood Count 3.95 x10^6/uL (3.50-5.40) Hemoglobin 11.5 g/dL (12.0-15.5) Hematocrit 35.6 % (36.0-47.0) Mean Corpuscular Volume 90 fL (79-100) Mean Corpuscular Hemoglobin 29 pg (25-35) Mean Corpuscular Hemoglobin Concent 33 g/dL (31-37) Red Cell Distribution Width 15.0 % (11.5-14.5) Platelet Count 176 x10^3/uL (140-400) Neutrophils (%) (Auto) 61 % (31-73) Lymphocytes (%) (Auto) 25 % (24-48) Monocytes (%) (Auto) 10 % (0-9) Eosinophils (%) (Auto) 3 % (0-3) Basophils (%) (Auto) 1 % (0-3) Neutrophils # (Auto) 4.4 x10^3/uL (1.8-7.7) Lymphocytes # (Auto) 1.8 x10^3/uL (1.0-4.8) Monocytes # (Auto) 0.7 x10^3/uL (0.0-1.1) Eosinophils # (Auto) 0.2 x10^3/uL (0.0-0.7) Basophils # (Auto) 0.1 x10^3/uL (0.0-0.2) Sodium Level 140 mmol/L (136-145) Potassium Level 3.9 mmol/L (3.5-5.1) Chloride Level 104 mmol/L (98-107) Carbon Dioxide Level 31 mmol/L (21-32) Anion Gap 5 (6-14) Blood Urea Nitrogen 28 mg/dL (7-20) Creatinine 1.1 mg/dL (0.6-1.0) Estimated GFR (Cockcroft-Gault) 50.8 BUN/Creatinine Ratio 25 (6-20) Glucose Level 99 mg/dL (70-99) Lactic Acid Level 0.9 mmol/L (0.4-2.0) Calcium Level 10.9 mg/dL (8.5-10.1) Total Bilirubin 0.3 mg/dL (0.2-1.0) Aspartate Amino Transf (AST/SGOT) 19 U/L (15-37) Alanine Aminotransferase (ALT/SGPT) 22 U/L (14-59) Alkaline Phosphatase 109 U/L (46-116) Troponin I Quantitative < 0.017 ng/mL (0.000-0.055) KU-Bml-K-Type Natriuretic Peptide 34 pg/mL (0-124) Total Protein 6.9 g/dL (6.4-8.2) Albumin 3.2 g/dL (3.4-5.0) Albumin/Globulin Ratio 0.9 (1.0-1.7) Influenza Type A Antigen Negative (NEGATIVE) Influenza Type B Antigen Negative (NEGATIVE) Urine Collection Type U cath Urine Color Yellow Urine Clarity Clear Urine pH 6.0 (<5.0-8.0) Urine Specific [place] 1.020 (1.000-1.030) Urine Protein Negative mg/dL (NEG-TRACE) Urine Glucose (UA) Negative mg/dL (NEG) Urine Ketones (Stick) Negative mg/dL (NEG) Urine Blood Negative (NEG) Urine Nitrite Negative (NEG) Urine Bilirubin Negative (NEG) Urine Urobilinogen Dipstick 1.0 mg/dL (0.2 mg/dL) Urine Leukocyte Esterase Negative (NEG) Urine RBC 0 /HPF (0-2) Urine WBC Occ /HPF (0-4) Urine Squamous Epithelial Cells Mod /LPF Urine Bacteria Moderate /HPF (0-FEW) Urine Opiates Screen Neg (NEG) Urine Methadone Screen Neg (NEG) Urine Barbiturates Neg (NEG) Urine Phencyclidine Screen Neg (NEG) Urine Amphetamine/Methamphetamine Neg (NEG) Urine Benzodiazepines Screen Neg (NEG) Urine Cocaine Screen Neg (NEG) Urine Cannabinoids Screen Neg (NEG) Urine Ethyl Alcohol Neg (NEG) Glucose (Fingerstick) 174 mg/dL (70-99) Assessment and Plan Assessmemt and Plan Problems Medical Problems: (1) Cellulitis Status: Acute (2) Person under investigation for COVID-19 Status: Acute (3) Pneumonia Status: Acute Comment Review of Relevant I have reviewed the following items figueroa (where applicable) has been applied. Medications: Current Medications Medications (Trade) Dose Ordered Sig/Linda Route PRN Reason Start Time Stop Time Status Last Admin Dose Admin Methylprednisolone Sodium Succinate (SOLU-Medrol 125MG VIAL) 90 mg 1X ONCE IV 10/08/20 18:15 10/08/20 18:16 DC 10/08/20 18:44 Linezolid/Dextrose 300 ml @ 300 mls/hr 1X ONCE IV 10/08/20 18:30 10/08/20 19:29 DC 10/08/20 18:44 Ondansetron HCl (Zofran) 4 mg PRN Q8HRS PRN IV NAUSEA/VOMITING 10/08/20 18:30 10/09/20 18:29 10/09/20 14:25 Multivitamins (Thera M Plus) 1 tab DAILY PO 10/09/20 09:00 10/09/20 08:20 Methylprednisolone Sodium Succinate (SOLU-Medrol 40MG VIAL) 62.5 mg BID IV 10/09/20 10:30 10/09/20 11:39 Linezolid/Dextrose 300 ml @ 300 mls/hr Q12HR IV 10/09/20 11:00 10/09/20 11:39 Gabapentin (Neurontin) 900 mg TID PO 10/09/20 14:00 10/09/20 14:25 Isosorbide Mononitrate (Imdur) 30 mg DAILY PO 10/09/20 13:00 10/09/20 14:24 Ropinirole HCl (Requip) 1 mg DAILY PO 10/09/20 13:00 10/09/20 14:25 Zonisamide (Zonegran) 200 mg DAILY PO 10/09/20 13:00 10/09/20 14:26 Duloxetine HCl (Cymbalta) 120 mg DAILY PO 10/09/20 13:00 10/09/20 14:24 Justifications for Admission Other Justification MIC GUSTAFSON MD Oct 09, 2020 15:09
[2020-10-09] MEDS ORDERED: GUAI237L83 PO (15:28)
[2020-10-09] MEDS ORDERED: ACET500T68 PO (15:28)
[2020-10-09] MEDS ORDERED: ALBU2.5V8 IH (15:34)
[2020-10-09] MEDS ORDERED: ALBU2.5V5 NEB (15:34)
--- NOTE | 2020-10-09 16:30 | NUR ---
Spoke to the patient's over the phone. He mentioned warfarin dosing to be 9 mg every Monday and , then 10 mg all other days.
[2020-10-09] MEDS ORDERED: WARFARIN 1 MG TABLET. PO SCH (17:00)
[2020-10-09] MEDS ORDERED: WARFARIN 5 MG TABLET. PO ONE (18:00)
--- NOTE | 2020-10-09 18:44 | CONS ---
DATE OF CONSULTATION: 10/09/2020 REFERRING PHYSICIAN: Dr. Manzano. REASON FOR CONSULTATION: Left lower extremity cellulitis. HISTORY OF PRESENT ILLNESS: This is a 59-year-old female with multiple medical problems, presented to the ER with complaints of chronic cough, sore throat, chest pain, dizziness, left lower extremity wounds with weeping cellulitis, fatigue, pelvic pain, loss of smell, nausea, vomiting, shortness of breath, which has been going on for a couple of days prior to admission, worsening over the last 1 or 2 weeks gradually. The patient has left lower extremity swelling, which is worse than the right one. The patient usually uses O2 at home for chronic respiratory failure. She has been usually following at [facility], but since the hospital was full, she was referred here. She also has neuropathy in both lower extremities, DJD, diabetes, bronchitis, cervical cancer, migraine, CVA, kidney disease, fibromyalgia, PE, DVT for which she is on Coumadin, stents in both the legs for peripheral vascular disease, cholecystectomy, Port-A-Cath in the right chest. She usually gets IV antibiotics whenever she comes down with cellulitis at [facility]. Last time she was treated with Invanz about 4-5 months ago. REVIEW OF SYSTEMS: Upon presentation to the ER, her temperature was 98.4, white count was 7.3. Lactate was 0.9, albumin of 3.2, creatinine of 1.1. UA was negative. Influenza screen was negative. UDS was negative. She underwent a chest x-ray, which showed diffuse interstitial thickening, can be seen with pulmonary edema with a component of interstitial infiltrates. Head CT shows no acute evidence of intracranial process, white matter changes with small vessel disease. Abdominal and pelvic CT showed moderate to large volume constipation, no obstruction. Appendix is normal. Periumbilical hernia, ground-glass opacities in the lung bases. Ultrasound of the lower extremity did not show any DVT. The patient was started on linezolid and azithromycin, which he is tolerating well. Due to multiple allergies ID consultation has been requested for further evaluation and treatment. PAST MEDICAL HISTORY: Morbid obesity; allergic rhinitis; chronic sinusitis; COPD; chronic respiratory failure, on home O2; asthma; hyperlipidemia; peripheral vascular disease, status post stent; varicose veins; May-Thurner syndrome; recurrent DVT; chronic migraine; cystitis. Cataract surgery, laryngoscopy, lung biopsy, endometrial biopsy, nasal surgery, left nephrectomy, partial parathyroidectomy. CKD, generalized anxiety disorder, major depressive disorder, glucocorticoid deficiency; primary hyperparathyroidism, diabetes, tonsillectomy, hysterectomy. Tympanoplasty. Port-A-Cath placement. Recurrent lower extremity cellulitis for which she has been on numerous antibiotics, last was couple of months ago at [facility]. Chronic anticoagulation, history of cervical cancer. ALLERGIES: CEPHALEXIN, IODINE, PENICILLIN, SULFA, ADHESIVE TAPE, ASPIRIN, AZITHROMYCIN, BEE POLLEN, CEFTRIAXONE, CIPRO, CLARITHROMYCIN, CLINDAMYCIN, DOXYCYCLINE , ESTROGEN. The patient currently is on azithromycin, tolerating it well. SOCIAL HISTORY: Denies smoking, ETOH, or illicit drug use. CURRENT MEDICATIONS: Include albuterol, atorvastatin, azithromycin, budesonide, duloxetine, gabapentin, guaifenesin, isosorbide, linezolid, methylprednisolone, montelukast, multivitamin, ondansetron, ropinirole, tramadol, warfarin, zonisamide. PHYSICAL EXAMINATION: VITAL SIGNS: Temperature 97.5, pulse 88, respiratory rate 20, blood pressure 168/76, oxygen saturation 93% on 3 liters with nasal cannula. GENERAL: Alert, oriented x 3 female, sitting upright in a chair, on 3 liters O2 by nasal cannula. HEENT: Normocephalic, atraumatic. Anicteric. Oral mucosa moist. NECK: Supple. LUNGS: Clear bilaterally with few expiratory rhonchi. HEART: S1, S2. No gallops or murmurs. ABDOMEN: Soft, obese. Bowel sounds present. EXTREMITIES: Dressing in the right lower extremity taken down, chronic wound, mild superficial erythema, chronic edema, chronic venous stasis changes present. NEUROLOGIC: Alert and oriented x 3, grossly nonfocal. PSYCHIATRIC: Cooperative. Appears anxious. LABORATORY DATA: WBC 7.3, hemoglobin 11.5, hematocrit 35.6, platelets 176. Sodium 140, potassium 3.9, chloride 104, bicarb 31, BUN 28, creatinine 1.1, calcium 10.9, glucose 174. LFTs normal. Albumin 3.2. UA negative. UDS negative. Influenza screen negative. COVID-19, pending. IMAGING: Chest x-ray as above. CT head as above. Abdominal and pelvic CT as above. Ultrasound of the lower extremity as above. IMPRESSION: 1. Mild superimposed left lower extremity cellulitis with underlying chronic left lower extremity wound. 2. Chronic venous stasis changes present in both lower extremities. 3. Chronic lower extremity edema. 4. Generalized weakness. 5. Acute on chronic hypoxic respiratory failure. COVID-19 pending 6. Diabetes. 7. Chronic obstructive pulmonary disease. 8. History of pulmonary embolism/deep vein thrombosis. 9. Port-A-Cath, right chest wall, clean. 10. Fibromyalgia. 11. COVID, patient under investigation 12. Chronic kidney disease status post nephrectomy. 13. Multiple allergies, though the patient is tolerating his azithromycin well. RECOMMENDATIONS: 1. Continue linezolid. 2. Discontinue azithromycin. 3. Follow up COVID-19. 4. Follow up labs and cultures. 5. Continue local wound care as directed. 6. Continue supportive care. Thank you, Dr. Manzano, for consulting Infectious Disease to participate in this patient's care. If you have any questions, do not hesitate to contact me. VANDANA BORDEN MD DR: DANA/omari JOB#: [id number] / [id number] EMILIANO
[2020-10-09 19:50] VITALS: BP 153/69
[2020-10-09] MEDS ORDERED: AZITHROMYCIN 500 MG in IV NORMAL SALINE 250ML 250 ML IV SCH (20:00)
[2020-10-09] MEDS ORDERED: BUDESONIDE 0.5 MG/2 ML NEBU. NEB PRN (20:00)
--- NOTE | 2020-10-09 20:32 | NUR ---
Pharmacy Warfarin Dosing Note S:Pharmacy consulted to assist with anticoagulation therapy started from [facility] with target INR: 2 - 3 O:ELDA ANDREWS is a 59 year old F with h/o VTE LABS: Last INR: 1.2 Last HGB: 11.5 Last HCT: 35.6 Last PLT: 176 Previous Regimen: 10 mg daily except 9 mg Mon/ Vitamin K given: N Drug Interaction Changes: Same Interacting Drug Ongoing Drug Interactions: duloxetine A:INR of 1.2 is below desired range. Target range for this patient is: 2 - 3 P: Warfarin dose: 10 mg Today at 1600 Bridge Therapy: None Next INR due 10/10/20 Pharmacy anticoagulation service will continue to follow. USAMA BALES [facility], 10/09/202031
[2020-10-09] MEDS: ATORVASTATIN CALCIUM 40 MG TABLET. PO SCH (23:01)
[2020-10-09] MEDS: MONTELUKAST SODIUM 10 MG TABLET. PO SCH (23:01)
[2020-10-09 23:45] VITALS: BP 149/67
[2020-10-10 03:45] VITALS: BP 141/63
[2020-10-10 07:00] VITALS: BP 171/78
[2020-10-10] MEDS: IPRATRPIUM/ALBUTEROL 0.5/2.5MG 3 ML NEBU. NEB SCH ×4 (07:44→21:02)
[2020-10-10] MEDS: GABAPENTIN 300 MG CAPSULE. PO SCH ×3 (08:37→21:44)
[2020-10-10] MEDS: DULoxetine HCL 30 MG CAPSULE.DR PO SCH (08:37)
[2020-10-10] MEDS: ZONISAMIDE 100 MG CAPSULE. PO SCH (08:37)
[2020-10-10] MEDS: ISOSORBIDE MONONITRATE ER 30 MG TAB.ER.24H PO SCH (08:38)
[2020-10-10] MEDS: rOPINIRole 1 MG TABLET. PO SCH (08:38)
[2020-10-10] MEDS: MULTIVITAMIN with MINERAL TABLET. PO SCH (08:38)
[2020-10-10] MEDS: methylPREDNISolone SOD SUCC PF 40 MG/ML VIAL. IV SCH ×2 (08:40→21:44)
--- NOTE | 2020-10-10 08:47 | PDOC ---
Infectious Disease Note Subjective: Subjective Pt says still has generalized aches and pains no fevers LLE wound improving Vital Signs: Vital Signs Vital Signs Date Time Temp Pulse Resp B/P (MAP) Pulse Ox O2 Delivery O2 Flow Rate FiO2 10/10/20 08:38 72 141/63 10/10/20 07:49 96 Nasal Cannula 2.5 10/10/20 03:45 97.8 19 97.8 Physical Exam: PHYSICAL EXAM GENERAL: Alert, oriented x 3 female, sitting upright in a chair, on O2 by nasal cannula. HEENT: Normocephalic, atraumatic. Anicteric. Oral mucosa moist. NECK: Supple. LUNGS: Clear bilaterally with few expiratory rhonchi. HEART: S1, S2. No gallops or murmurs. ABDOMEN: Soft, obese. Bowel sounds present. EXTREMITIES: Dressing in the right lower extremity taken down, chronic wound, mild superficial erythema, chronic edema, chronic venous stasis changes present. NEUROLOGIC: Alert and oriented x 3, grossly nonfocal. PSYCHIATRIC: Cooperative. Appears anxious. Medications: Inpatient Meds: Current Medications Medications (Trade) Dose Ordered Sig/Linda Start Time Stop Time Status Last Admin Dose Admin Albuterol/ Ipratropium (Duoneb) 3 ml RTQID 10/09/20 12:00 10/10/20 07:44 3 ML Aspirin (Aspirin Chewable) 81 mg 1X ONCE 10/08/20 18:45 10/08/20 18:46 UNV Atorvastatin Calcium (Lipitor) 80 mg QHS 10/09/20 21:00 10/09/20 23:01 80 MG Azithromycin 250 ml @ 250 mls/hr 1X ONCE 10/08/20 19:00 10/08/20 19:59 DC Azithromycin 500 mg/Sodium Chloride 250 ml @ 250 mls/hr Q24H 10/09/20 20:00 10/09/20 16:19 DC Budesonide (Pulmicort) 0.5 mg PRN BID PRN 10/09/20 20:00 Duloxetine HCl (Cymbalta) 120 mg DAILY 10/09/20 13:00 10/10/20 08:37 120 MG Gabapentin (Neurontin) 900 mg TID 10/09/20 14:00 10/10/20 08:37 900 MG Guaifenesin/ Codeine Phosphate (Robitussin Ac) 5 ml PRN Q6HRS PRN 10/08/20 18:45 Info (Anti-Coagulation Monitoring By Pharmacy) 1 each DAILY 10/10/20 09:00 10/09/20 12:03 DC Isosorbide Mononitrate (Imdur) 30 mg DAILY 10/09/20 13:00 10/10/20 08:38 30 MG Linezolid/Dextrose 300 ml @ 300 mls/hr Q12HR 10/09/20 11:00 10/10/20 08:41 300 MLS/HR Methylprednisolone Sodium Succinate (SOLU-Medrol 40MG VIAL) 62.5 mg BID 10/09/20 10:30 10/10/20 08:40 62.5 MG Methylprednisolone Sodium Succinate (SOLU-Medrol 125MG VIAL) 90 mg 1X ONCE 10/08/20 18:15 10/08/20 18:16 DC 10/08/20 18:44 90 MG Montelukast Sodium (Singulair) 10 mg HS 10/09/20 21:00 10/09/20 23:01 10 MG Multivitamins (Thera M Plus) 1 tab DAILY 10/09/20 09:00 10/10/20 08:38 1 TAB Ondansetron HCl (Zofran Odt) 8 mg BID PRN 10/09/20 12:15 Ondansetron HCl (Zofran) 4 mg PRN Q8HRS PRN 10/08/20 18:30 10/09/20 18:29 DC 10/09/20 14:25 4 MG Ropinirole HCl (Requip) 1 mg DAILY 10/09/20 13:00 10/10/20 08:38 1 MG Tramadol HCl (Ultram) 50 mg BID PRN 10/09/20 12:00 Warfarin Sodium (Coumadin Per Pharmacy) 1 each PRN DAILY PRN 10/09/20 12:15 10/09/20 20:32 1 EACH Warfarin Sodium (Coumadin) 10 mg 1X WARF ONCE 10/09/20 18:00 10/09/20 18:01 DC 10/09/20 17:30 10 MG Zonisamide (Zonegran) 200 mg DAILY 10/09/20 13:00 10/10/20 08:37 200 MG Labs: Lab Laboratory Tests Test 10/09/20 16:16 10/09/20 20:42 Prothrombin Time 15.0 SEC (11.7-14.0) Prothromb Time International Ratio 1.2 (0.8-1.1) Glucose (Fingerstick) 175 mg/dL (70-99) Objective: Assessment: 1. Left lower extremity cellulitis with underlying chronic left lower extremity wound. 2. Chronic venous stasis changes present in both lower extremities. 3. Chronic lower extremity edema. 4. Generalized weakness. 5. Acute on chronic hypoxic respiratory failure. 6. Diabetes. 7. Chronic obstructive pulmonary disease. 8. History of pulmonary embolism/deep vein thrombosis. 9. Port-A-Cath, right chest wall, clean. 10. Fibromyalgia. 11. COVID 19 neg 12. Chronic kidney disease status post nephrectomy. 13. Multiple allergies, though the patient is tolerating his azithromycin well. Plan: Plan of Care Continue linezolid. COVID-19 reported negative Follow up labs and cultures. Continue local wound care as directed. Continue supportive care. VANDANA BORDEN MD Oct 10, 2020 08:47
[2020-10-10] MEDS ORDERED: ANTI-COAG MONITOR BY PHARMACY. MC SCH (09:00)
--- NOTE | 2020-10-10 10:57 | PDOC ---
PULMONARY PROGRESS NOTES DATE: 10/10/20 TIME: 10:54 Subjective pt. is on 2.5 liters N/C non-productive cough no overnight events Vitals Vital Signs Date Time Temp Pulse Resp B/P (MAP) Pulse Ox O2 Delivery O2 Flow Rate FiO2 10/10/20 08:38 72 141/63 10/10/20 07:49 96 Nasal Cannula 2.5 10/10/20 07:00 97.7 19 97.7 ROS: No Nausea, No Chest Pain, No Abdominal Pain, No Increase Cough Lungs: Crackles Cardiovascular: S1, S2 Abdomen: Soft Neuro Exam: Alert Labs Laboratory Tests Test 10/08/20 16:30 10/08/20 17:30 10/09/20 08:19 10/09/20 16:16 White Blood Count 7.3 x10^3/uL (4.0-11.0) Red Blood Count 3.95 x10^6/uL (3.50-5.40) Hemoglobin 11.5 g/dL (12.0-15.5) Hematocrit 35.6 % (36.0-47.0) Mean Corpuscular Volume 90 fL (79-100) Mean Corpuscular Hemoglobin 29 pg (25-35) Mean Corpuscular Hemoglobin Concent 33 g/dL (31-37) Red Cell Distribution Width 15.0 % (11.5-14.5) Platelet Count 176 x10^3/uL (140-400) Neutrophils (%) (Auto) 61 % (31-73) Lymphocytes (%) (Auto) 25 % (24-48) Monocytes (%) (Auto) 10 % (0-9) Eosinophils (%) (Auto) 3 % (0-3) Basophils (%) (Auto) 1 % (0-3) Neutrophils # (Auto) 4.4 x10^3/uL (1.8-7.7) Lymphocytes # (Auto) 1.8 x10^3/uL (1.0-4.8) Monocytes # (Auto) 0.7 x10^3/uL (0.0-1.1) Eosinophils # (Auto) 0.2 x10^3/uL (0.0-0.7) Basophils # (Auto) 0.1 x10^3/uL (0.0-0.2) Sodium Level 140 mmol/L (136-145) Potassium Level 3.9 mmol/L (3.5-5.1) Chloride Level 104 mmol/L (98-107) Carbon Dioxide Level 31 mmol/L (21-32) Anion Gap 5 (6-14) Blood Urea Nitrogen 28 mg/dL (7-20) Creatinine 1.1 mg/dL (0.6-1.0) Estimated GFR (Cockcroft-Gault) 50.8 BUN/Creatinine Ratio 25 (6-20) Glucose Level 99 mg/dL (70-99) Lactic Acid Level 0.9 mmol/L (0.4-2.0) Calcium Level 10.9 mg/dL (8.5-10.1) Total Bilirubin 0.3 mg/dL (0.2-1.0) Aspartate Amino Transf (AST/SGOT) 19 U/L (15-37) Alanine Aminotransferase (ALT/SGPT) 22 U/L (14-59) Alkaline Phosphatase 109 U/L (46-116) Troponin I Quantitative < 0.017 ng/mL (0.000-0.055) QI-Vxc-S-Type Natriuretic Peptide 34 pg/mL (0-124) Total Protein 6.9 g/dL (6.4-8.2) Albumin 3.2 g/dL (3.4-5.0) Albumin/Globulin Ratio 0.9 (1.0-1.7) Coronavirus (PCR) Not detected (Not Detected) Influenza Type A Antigen Negative (NEGATIVE) Influenza Type B Antigen Negative (NEGATIVE) Urine Collection Type U cath Urine Color Yellow Urine Clarity Clear Urine pH 6.0 (<5.0-8.0) Urine Specific [place] 1.020 (1.000-1.030) Urine Protein Negative mg/dL (NEG-TRACE) Urine Glucose (UA) Negative mg/dL (NEG) Urine Ketones (Stick) Negative mg/dL (NEG) Urine Blood Negative (NEG) Urine Nitrite Negative (NEG) Urine Bilirubin Negative (NEG) Urine Urobilinogen Dipstick 1.0 mg/dL (0.2 mg/dL) Urine Leukocyte Esterase Negative (NEG) Urine RBC 0 /HPF (0-2) Urine WBC Occ /HPF (0-4) Urine Squamous Epithelial Cells Mod /LPF Urine Bacteria Moderate /HPF (0-FEW) Urine Opiates Screen Neg (NEG) Urine Methadone Screen Neg (NEG) Urine Barbiturates Neg (NEG) Urine Phencyclidine Screen Neg (NEG) Urine Amphetamine/Methamphetamine Neg (NEG) Urine Benzodiazepines Screen Neg (NEG) Urine Cocaine Screen Neg (NEG) Urine Cannabinoids Screen Neg (NEG) Urine Ethyl Alcohol Neg (NEG) Glucose (Fingerstick) 174 mg/dL (70-99) Prothrombin Time 15.0 SEC (11.7-14.0) Prothromb Time International Ratio 1.2 (0.8-1.1) Test 10/09/20 20:42 10/10/20 08:42 Glucose (Fingerstick) 175 mg/dL (70-99) 134 mg/dL (70-99) Laboratory Tests Test 10/09/20 16:16 10/09/20 20:42 10/10/20 08:42 Prothrombin Time 15.0 SEC (11.7-14.0) Prothromb Time International Ratio 1.2 (0.8-1.1) Glucose (Fingerstick) 175 mg/dL (70-99) 134 mg/dL (70-99) Medications Active Scripts Medications Dose Route/Sig Max Daily Dose Days Date Category Albuterol Sulfate Neb Soln (Albuterol Sulfate) 2.5 Mg/3 Ml Vial.neb 1 Vial NEB PRN Q4HRS 10/09/20 Reported Proair Hfa (Albuterol Sulfate) 8.5 Gm Hfa.aer.ad 2 Puff IH PRN Q4-6HRS PRN 21 10/09/20 Reported Acetaminophen 500 Mg Tablet 2 Tab PO PRN Q6HRS PRN 15 10/09/20 Reported Robitussin Cough-Chest Dm Liq (Guaifenesin/Dextromethorphan) 237 Ml Liquid 5 Ml PO Q4-6HRS PRN 10/09/20 Reported Saline Nasal [place] (Sodium Chloride) 30 Ml [place] 1-2 [place] NS QID 10/09/20 Reported Vitamin D2 (Ergocalciferol (Vitamin D2)) 1,250 Mcg Capsule 1,250 Mcg PO 3X/WEEK 10/09/20 Reported Advair 500-50 Diskus (Fluticasone/Salmeterol) 1 Each Disk.w.dev 1 Puff IH BID 10/09/20 Reported Premarin (Estrogens, Conjugated) 30 Gm Cream.appl 0.5 Gm VG TWICE WEEKLY 10/09/20 Reported Zofran (Ondansetron Hcl) 4 Mg Tablet 8 Mg PO BID PRN 10/09/20 Reported Warfarin Sodium 10 Mg Tablet 10 Mg PO DAILY 10/09/20 Reported Warfarin Sodium 1 Mg Tablet 1 Mg PO DAILY 10/09/20 Reported Montelukast Sodium Tablet (Montelukast Sodium) 10 Mg Tablet 10 Mg PO HS 10/09/20 Reported Ropinirole Hcl 1 Mg Tablet 1 Mg PO DAILY 10/09/20 Reported Atorvastatin Calcium 80 Mg Tablet 80 Mg PO QHS 10/09/20 Reported Tramadol Hcl 50 Mg Tablet 50 Mg PO BID PRN 10/09/20 Reported Gabapentin (Gabapentin) 300 Mg Capsule 900 Mg PO TID 10/09/20 Reported Isosorbide Mononitrate Er (Isosorbide Mononitrate) 30 Mg Tab.er.24h 1 Tab PO DAILY 10/09/20 Reported Zonegran (Zonisamide) 100 Mg Capsule 2 Cap PO DAILY 30 10/09/20 Reported Cymbalta (Duloxetine Hcl) 60 Mg Capsule.dr 2 Cap PO DAILY 10/09/20 Reported Comments CXR Impression: 1. Diffuse interstitial thickening, can be seen with pulmonary edema although a component of chronic interstitial changes is possible. Impression . IMPRESSION: 1. Abnormal x-ray revealing bilateral pulmonary infiltrates, some chronic in nature, possibly interstitial lung disease with concurrent acute pulmonary edema. 2. Chronic respiratory failure. 3. Sarcoid status post mediastinoscopy in 2000. 4. Fibromyalgia. 5. 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 6. Chronic lower extremity cellulitis with new onset of cellulitis. 7. Negative venous Dopplers of lower extremities. 8. Abnormal chest x-ray. 9. Morbid obesity. 10. Hypertension. 11. Diabetes. 12. History of migraine headaches. Plan . PLAN: Continue current oxygen supplementation to keep sats above 92%, currently on 2.5 lites N/C Continue ABX per ID COVID_19 negative, influenza negative HTN per PCP DVT/GI PPX PT/OT D/W MILY PORTILLO MD Oct 10, 2020 10:57
[2020-10-10 11:00] VITALS: BP 150/70
--- NOTE | 2020-10-10 12:11 | PDOC ---
[employer] PROGRESS NOTE Date of Service DOS: DATE: 10/10/20 TIME: 12:10 Chief Complaint Chief Complaint Generalized malaise due to CAP likely gram-negative Negative for COVID-19 infection Sarcoid status post mediastinoscopy in 2000. Fibromyalgia. 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 Chronic lower extremity cellulitis with new onset of cellulitis. Negative venous Dopplers of lower extremities. Abnormal chest x-ray. Morbid obesity. Hypertension. Diabetes. History of migraine headaches. Continue medical management Appreciate pulmonology recommendationscontinue O2 supplementation and empiric IV antibiotics Pending ID consult Pending wound care consult for left lower extremity cellulitis Continue warfarin home dose for DVT and pulmonary embolism PT OT IV pain control Resume antihypertensive home medications. Labetalol as needed for systolic blood pressure greater than 180. Inpatient hospital blood pressure goals between 1 40-1 80 Resume all home medications Warfarin for DVT prophylaxis ADA diet Full code Discussed with RN and SW Disposition inpatient management as above Surrogate decision maker is Lazarus Barillas History of Present Illness History of Present Illness 10/10/2020 Continues to complain of generalized body aches. Saturating 92% on 2 L nasal cannula. Patient's chart, labs, images were reviewed and discussed with RN 10/09/2020 No acute events overnight. Patient is sitting in the recliner and states she is feeling okay. States that he tries to smile because she has some knee problems. She did have a bowel movement this morning which she said that relieved her back pain. But she does still describe some dyspnea even at rest. Patient's chart, labs, images were reviewed and discussed with RN 59-year-old morbidly obese female who has many, many, many medical problems and sees many, many doctors. She brought in a list of all of her medical care. It is quite daunting. Basically, today she is now complaining of sore throat, cough, chest pain, dizziness, syncope, urinary symptoms, left lower leg wounds and fatigue for the past month. She also has some pelvic pain and loss of smell and body aches and nausea, vomiting, shortness of breath. This has been going on for 2 weeks. The left lower extremity is also swollen. Apparently, she wears 4 liters of oxygen at home. Clinically, we were concerned she could have COVID-19. We did a chest x-ray, which shows diffuse interstitial thickening. I discussed the case with ER physician. We are going to admit the patient and consult Infectious Disease and Pulmonary. Vitals/I&O Vitals/I&O: Vital Signs Date Time Temp Pulse Resp B/P (MAP) Pulse Ox O2 Delivery O2 Flow Rate FiO2 10/10/20 11:59 96 Nasal Cannula 2.5 10/10/20 08:38 72 141/63 10/10/20 07:00 97.7 19 97.7 I & O 10/09/20 10/09/20 10/10/20 15:00 23:00 07:00 Intake Total 290 ml 780 ml 500 ml Output Total 200 ml 250 ml 50 ml Balance 90 ml 530 ml 450 ml Physical Exam Physical Exam: GENERAL: Alert, oriented x 3 female, sitting upright in a chair, on O2 by nasal cannula. HEENT: Normocephalic, atraumatic. Anicteric. Oral mucosa moist. NECK: Supple. LUNGS: Clear bilaterally with few expiratory rhonchi. HEART: S1, S2. No gallops or murmurs. ABDOMEN: Soft, obese. Bowel sounds present. EXTREMITIES: Dressing in the right lower extremity taken down, chronic wound, mild superficial erythema, chronic edema, chronic venous stasis changes present. NEUROLOGIC: Alert and oriented x 3, grossly nonfocal. PSYCHIATRIC: Cooperative. Appears anxious. Lungs: Crackles Labs Labs: Laboratory Tests Test 10/09/20 16:16 10/09/20 20:42 10/10/20 08:42 10/10/20 11:55 Prothrombin Time 15.0 SEC (11.7-14.0) Prothromb Time International Ratio 1.2 (0.8-1.1) Glucose (Fingerstick) 175 mg/dL (70-99) 134 mg/dL (70-99) 205 mg/dL (70-99) Assessment and Plan Assessmemt and Plan Problems Medical Problems: (1) Cellulitis Status: Acute (2) Person under investigation for COVID-19 Status: Acute (3) Pneumonia Status: Acute Comment Review of Relevant I have reviewed the following items figueroa (where applicable) has been applied. Medications: Current Medications Medications (Trade) Dose Ordered Sig/Linda Route PRN Reason Start Time Stop Time Status Last Admin Dose Admin Gabapentin (Neurontin) 900 mg TID PO 10/09/20 14:00 10/10/20 08:37 Isosorbide Mononitrate (Imdur) 30 mg DAILY PO 10/09/20 13:00 10/10/20 08:38 Montelukast Sodium (Singulair) 10 mg HS PO 10/09/20 21:00 10/09/20 23:01 Ropinirole HCl (Requip) 1 mg DAILY PO 10/09/20 13:00 10/10/20 08:38 Zonisamide (Zonegran) 200 mg DAILY PO 10/09/20 13:00 10/10/20 08:37 Atorvastatin Calcium (Lipitor) 80 mg QHS PO 10/09/20 21:00 10/09/20 23:01 Duloxetine HCl (Cymbalta) 120 mg DAILY PO 10/09/20 13:00 10/10/20 08:37 Warfarin Sodium (Coumadin Per Pharmacy) 1 each PRN DAILY PRN MC SEE COMMENTS 10/09/20 12:15 10/09/20 20:32 Warfarin Sodium (Coumadin) 10 mg 1X WARF ONCE PO 10/09/20 18:00 10/09/20 18:01 DC 10/09/20 17:30 Justifications for Admission Other Justification MIC GUSTAFSON MD Oct 10, 2020 12:11
[2020-10-10 12:22] LABS: PROTHROMBIN TIME PATIENT 15.9 SEC (11.7-14.0)
[2020-10-10 13:34] LABS: CALCIUM 10.7 mg/dL (8.5-10.1); CREATININE 1.1 mg/dL (0.6-1.0); GFR 50.8; MAGNESIUM 2.2 mg/dL (1.8-2.4); POTASSIUM 4.4 mmol/L (3.5-5.1)
[2020-10-10 13:37] LABS: BASO % 0 % (0-3); EOS % 0 % (0-3); HEMATOCRIT 36.9 % (36.0-47.0); HEMOGLOBIN 11.9 g/dL (12.0-15.5); LYMPH # 0.9 x10^3/uL (1.0-4.8); LYMPH % 9 % (24-48); MEAN CORPUSCULAR HEMOGLOBIN 29 pg (25-35); MEAN CORPUSCULAR HGB CONC 32 g/dL (31-37); MEAN CORPUSCULAR VOLUME 90 fL (79-100); MONO # 0.2 x10^3/uL (0.0-1.1); MONO % 3 % (0-9); NEUT # 8.4 x10^3/uL (1.8-7.7); NEUT % 88 % (31-73); PLATELET COUNT 228 x10^3/uL (140-400); RED BLOOD COUNT 4.09 x10^6/uL (3.50-5.40); RED CELL DISTRIBUTION WIDTH 14.9 % (11.5-14.5); WHITE BLOOD COUNT 9.5 x10^3/uL (4.0-11.0)
[2020-10-10 15:00] VITALS: BP 167/107
--- NOTE | 2020-10-10 15:48 | NUR ---
Pharmacy Warfarin Dosing Note S: Pharmacy consulted to assist with anticoagulation therapy O: ELDA ANDREWS is a 59 year old F with h/o VTE LABS: Last INR: 1.3 Last HGB: 11.9 Last HCT: 36.9 Last PLT: 228 Last dose of 10 mg given on 10/09/20 at 1730 Vitamin K given: N Ongoing Drug Interactions: duloxetine A:INR of 1.3 is below desired range. Target range for this patient is: 2 - 3 P: Warfarin dose: 10 mg Today at 1600 Bridge Therapy: None Next INR due 10/11/20 Pharmacy anticoagulation service will continue to follow. USAMA BALES [facility], 10/10/20 [id number]
[2020-10-10] MEDS ORDERED: WARFARIN 5 MG TABLET. PO ONE (16:00)
[2020-10-10] MEDS: traMADol 50 MG TABLET PO PRN (17:39)
[2020-10-10 19:00] VITALS: BP 149/85
[2020-10-10 19:38] LABS: % ATYL 1 % (0-0); % BANDS 1 % (0-9); % LYMPHS 17 % (24-48); % MONOS 4 % (0-10); % SEGS 77 % (35-66); PLT ESTIMATE ADEQUATE (ADEQUATE)
[2020-10-10] MEDS: ATORVASTATIN CALCIUM 40 MG TABLET. PO SCH (21:44)
[2020-10-10] MEDS: MONTELUKAST SODIUM 10 MG TABLET. PO SCH (21:44)
[2020-10-10 23:00] VITALS: BP 171/68
[2020-10-11] MEDS ORDERED: ALBUTEROL SULFATE 2.5 MG/3 ML NEBU. NEB PRN (01:30)
[2020-10-11 03:00] VITALS: BP 141/65
[2020-10-11] MEDS: IPRATRPIUM/ALBUTEROL 0.5/2.5MG 3 ML NEBU. NEB SCH ×4 (06:07→20:48)
[2020-10-11 07:00] VITALS: BP 168/72
[2020-10-11 07:24] LABS: PROTHROMBIN TIME PATIENT 18.3 SEC (11.7-14.0)
--- NOTE | 2020-10-11 08:15 | PDOC ---
Infectious Disease Note Subjective: Subjective Patient without complaints Feels better Vital Signs: Vital Signs Vital Signs Date Time Temp Pulse Resp B/P (MAP) Pulse Ox O2 Delivery O2 Flow Rate FiO2 10/11/20 06:08 94 Nasal Cannula 3.0 10/11/20 03:00 98.2 63 42 141/65 (90) 98.2 Physical Exam: PHYSICAL EXAM GENERAL: Alert, oriented x 3 female, sitting upright in a chair, on O2 by nasal cannula. HEENT: Normocephalic, atraumatic. Anicteric. Oral mucosa moist. NECK: Supple. LUNGS: Clear bilaterally with few expiratory rhonchi. HEART: S1, S2. No gallops or murmurs. ABDOMEN: Soft, obese. Bowel sounds present. EXTREMITIES: Dressing in the right lower extremity taken down, chronic wound, mild superficial erythema, chronic edema, chronic venous stasis changes present. NEUROLOGIC: Alert and oriented x 3, grossly nonfocal. PSYCHIATRIC: Cooperative. Appears anxious. Medications: Inpatient Meds: Current Medications Medications (Trade) Dose Ordered Sig/Linda Start Time Stop Time Status Last Admin Dose Admin Albuterol Sulfate (Ventolin Neb Soln) 2.5 mg PRN Q4HRS PRN 10/11/20 01:30 10/11/20 01:28 2.5 MG Albuterol/ Ipratropium (Duoneb) 3 ml RTQID 10/09/20 12:00 10/11/20 06:07 3 ML Aspirin (Aspirin Chewable) 81 mg 1X ONCE 10/08/20 18:45 10/08/20 18:46 UNV Atorvastatin Calcium (Lipitor) 80 mg QHS 10/09/20 21:00 10/10/20 21:44 80 MG Azithromycin 250 ml @ 250 mls/hr 1X ONCE 10/08/20 19:00 10/08/20 19:59 DC Azithromycin 500 mg/Sodium Chloride 250 ml @ 250 mls/hr Q24H 10/09/20 20:00 10/09/20 16:19 DC Budesonide (Pulmicort) 0.5 mg PRN BID PRN 10/09/20 20:00 10/11/20 06:07 0.5 MG Duloxetine HCl (Cymbalta) 120 mg DAILY 10/09/20 13:00 10/10/20 08:37 120 MG Gabapentin (Neurontin) 900 mg TID 10/09/20 14:00 10/10/20 21:44 900 MG Guaifenesin/ Codeine Phosphate (Robitussin Ac) 5 ml PRN Q6HRS PRN 10/08/20 18:45 Info (Anti-Coagulation Monitoring By Pharmacy) 1 each DAILY 10/10/20 09:00 10/09/20 12:03 DC Isosorbide Mononitrate (Imdur) 30 mg DAILY 10/09/20 13:00 10/10/20 08:38 30 MG Linezolid/Dextrose 300 ml @ 300 mls/hr Q12HR 10/09/20 11:00 10/10/20 21:43 300 MLS/HR Methylprednisolone Sodium Succinate (SOLU-Medrol 40MG VIAL) 62.5 mg BID 10/09/20 10:30 10/10/20 21:44 62.5 MG Methylprednisolone Sodium Succinate (SOLU-Medrol 125MG VIAL) 90 mg 1X ONCE 10/08/20 18:15 10/08/20 18:16 DC 10/08/20 18:44 90 MG Montelukast Sodium (Singulair) 10 mg HS 10/09/20 21:00 10/10/20 21:44 10 MG Multivitamins (Thera M Plus) 1 tab DAILY 10/09/20 09:00 10/10/20 08:38 1 TAB Ondansetron HCl (Zofran Odt) 8 mg BID PRN 10/09/20 12:15 Ondansetron HCl (Zofran) 4 mg PRN Q8HRS PRN 10/08/20 18:30 10/09/20 18:29 DC 10/09/20 14:25 4 MG Ropinirole HCl (Requip) 1 mg DAILY 10/09/20 13:00 10/10/20 08:38 1 MG Tramadol HCl (Ultram) 50 mg BID PRN 10/09/20 12:00 10/10/20 17:39 50 MG Warfarin Sodium (Coumadin Per Pharmacy) 1 each PRN DAILY PRN 10/09/20 12:15 10/10/20 15:48 1 EACH Warfarin Sodium (Coumadin) 10 mg 1X WARF ONCE 10/10/20 16:00 10/10/20 16:01 DC 10/10/20 16:54 10 MG Zonisamide (Zonegran) 200 mg DAILY 10/09/20 13:00 10/10/20 08:37 200 MG Labs: Lab Laboratory Tests Test 10/10/20 08:42 10/10/20 11:45 10/10/20 11:55 10/10/20 16:59 Glucose (Fingerstick) 134 mg/dL (70-99) 205 mg/dL (70-99) 123 mg/dL (70-99) White Blood Count 9.5 x10^3/uL (4.0-11.0) Red Blood Count 4.09 x10^6/uL (3.50-5.40) Hemoglobin 11.9 g/dL (12.0-15.5) Hematocrit 36.9 % (36.0-47.0) Mean Corpuscular Volume 90 fL (79-100) Mean Corpuscular Hemoglobin 29 pg (25-35) Mean Corpuscular Hemoglobin Concent 32 g/dL (31-37) Red Cell Distribution Width 14.9 % (11.5-14.5) Platelet Count 228 x10^3/uL (140-400) Neutrophils (%) (Auto) 88 % (31-73) Lymphocytes (%) (Auto) 9 % (24-48) Monocytes (%) (Auto) 3 % (0-9) Eosinophils (%) (Auto) 0 % (0-3) Basophils (%) (Auto) 0 % (0-3) Neutrophils # (Auto) 8.4 x10^3/uL (1.8-7.7) Lymphocytes # (Auto) 0.9 x10^3/uL (1.0-4.8) Monocytes # (Auto) 0.2 x10^3/uL (0.0-1.1) Eosinophils # (Auto) 0.0 x10^3/uL (0.0-0.7) Basophils # (Auto) 0.0 x10^3/uL (0.0-0.2) Segmented Neutrophils % 77 % (35-66) Band Neutrophils % 1 % (0-9) Lymphocytes % 17 % (24-48) Atypical Lymphocytes % (Manual) 1 % (0-0) Monocytes % 4 % (0-10) Platelet Estimate Adequate (ADEQUATE) Prothrombin Time 15.9 SEC (11.7-14.0) Prothromb Time International Ratio 1.3 (0.8-1.1) Sodium Level 140 mmol/L (136-145) Potassium Level 4.4 mmol/L (3.5-5.1) Chloride Level 104 mmol/L (98-107) Carbon Dioxide Level 27 mmol/L (21-32) Anion Gap 9 (6-14) Blood Urea Nitrogen 27 mg/dL (7-20) Creatinine 1.1 mg/dL (0.6-1.0) Estimated GFR (Cockcroft-Gault) 50.8 Glucose Level 190 mg/dL (70-99) Calcium Level 10.7 mg/dL (8.5-10.1) Magnesium Level 2.2 mg/dL (1.8-2.4) Test 10/10/20 20:53 10/11/20 05:30 10/11/20 07:25 Glucose (Fingerstick) 106 mg/dL (70-99) 131 mg/dL (70-99) Prothrombin Time 18.3 SEC (11.7-14.0) Prothromb Time International Ratio 1.6 (0.8-1.1) Objective: Assessment: 1. Left lower extremity cellulitis with underlying chronic left lower extremity wound. 2. Chronic venous stasis changes present in both lower extremities. 3. Chronic lower extremity edema. 4. Generalized weakness. 5. Acute on chronic hypoxic respiratory failure. 6. Diabetes. 7. Chronic obstructive pulmonary disease. 8. History of pulmonary embolism/deep vein thrombosis. 9. Port-A-Cath, right chest wall, clean. 10. Fibromyalgia. 11. COVID 19 neg 12. Chronic kidney disease status post nephrectomy. 13. Multiple allergies, though the patient is tolerating his azithromycin well. Plan: Plan of Care Continue linezolid. COVID-19 reported negative Follow up labs and cultures. Continue local wound care as directed. Continue supportive care. Can be discharged from ID standpoint Prescription in chart VANDANA BORDEN MD Oct 11, 2020 08:15
[2020-10-11] MEDS: DULoxetine HCL 30 MG CAPSULE.DR PO SCH (10:18)
[2020-10-11] MEDS: methylPREDNISolone SOD SUCC PF 40 MG/ML VIAL. IV SCH ×2 (10:18→21:21)
[2020-10-11] MEDS: ISOSORBIDE MONONITRATE ER 30 MG TAB.ER.24H PO SCH (10:19)
[2020-10-11] MEDS: rOPINIRole 1 MG TABLET. PO SCH (10:19)
[2020-10-11] MEDS: MULTIVITAMIN with MINERAL TABLET. PO SCH (10:19)
[2020-10-11] MEDS: GABAPENTIN 300 MG CAPSULE. PO SCH ×3 (10:19→21:22)
[2020-10-11] MEDS: ZONISAMIDE 100 MG CAPSULE. PO SCH (10:19)
--- NOTE | 2020-10-11 10:50 | PDOC ---
[employer] PROGRESS NOTE Date of Service DOS: DATE: 10/11/20 TIME: 10:49 Chief Complaint Chief Complaint Generalized malaise due to CAP likely gram-negative Negative for COVID-19 infection Sarcoid status post mediastinoscopy in 2000. Fibromyalgia. 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 Chronic lower extremity cellulitis with new onset of cellulitis. Negative venous Dopplers of lower extremities. Abnormal chest x-ray. Morbid obesity. Hypertension. Diabetes. History of migraine headaches. Continue medical management Appreciate pulmonology recommendationscontinue O2 supplementation and empiric IV antibiotics Pending ID consult Pending wound care consult for left lower extremity cellulitis Continue warfarin home dose for DVT and pulmonary embolism PT OT IV pain control Resume antihypertensive home medications. Labetalol as needed for systolic blood pressure greater than 180. Inpatient hospital blood pressure goals between 1 40-1 80 Resume all home medications Warfarin for DVT prophylaxis ADA diet Full code Discussed with RN and SW Disposition inpatient management as above Surrogate decision maker is Lazarus Barillas History of Present Illness History of Present Illness 10/11/2020 No acute events overnight. Patient does feels slightly better. Saturating 98% on 3 L nasal cannula. Patient wears oxygen at home at 4 L nasal cannula. Patient's chart, labs, images were reviewed and discussed with RN anticipate discharge in the next 24 to 48 hours. 10/10/2020 Continues to complain of generalized body aches. Saturating 92% on 2 L nasal cannula. Patient's chart, labs, images were reviewed and discussed with RN 10/09/2020 No acute events overnight. Patient is sitting in the recliner and states she is feeling okay. States that he tries to smile because she has some knee problems. She did have a bowel movement this morning which she said that relieved her back pain. But she does still describe some dyspnea even at rest. Patient's chart, labs, images were reviewed and discussed with RN 59-year-old morbidly obese female who has many, many, many medical problems and sees many, many doctors. She brought in a list of all of her medical care. It is quite daunting. Basically, today she is now complaining of sore throat, cough, chest pain, dizziness, syncope, urinary symptoms, left lower leg wounds and fatigue for the past month. She also has some pelvic pain and loss of smell and body aches and nausea, vomiting, shortness of breath. This has been going on for 2 weeks. The left lower extremity is also swollen. Apparently, she wears 4 liters of oxygen at home. Clinically, we were concerned she could have COVID-19. We did a chest x-ray, which shows diffuse interstitial thickening. I discussed the case with ER physician. We are going to admit the patient and consult Infectious Disease and Pulmonary. Vitals/I&O Vitals/I&O: Vital Signs Date Time Temp Pulse Resp B/P (MAP) Pulse Ox O2 Delivery O2 Flow Rate FiO2 10/11/20 10:45 98 Nasal Cannula 3.0 10/11/20 10:19 65 168/72 10/11/20 07:00 97.6 18 97.6 I & O 10/10/20 10/10/20 10/11/20 15:00 23:00 07:00 Intake Total 0 ml 310 ml Balance 0 ml 310 ml Physical Exam Physical Exam: GENERAL: Alert, oriented x 3 female, sitting upright in a chair, on O2 by nasal cannula. HEENT: Normocephalic, atraumatic. Anicteric. Oral mucosa moist. NECK: Supple. LUNGS: Clear bilaterally with few expiratory rhonchi. HEART: S1, S2. No gallops or murmurs. ABDOMEN: Soft, obese. Bowel sounds present. EXTREMITIES: Dressing in the right lower extremity taken down, chronic wound, mild superficial erythema, chronic edema, chronic venous stasis changes present. NEUROLOGIC: Alert and oriented x 3, grossly nonfocal. PSYCHIATRIC: Cooperative. Appears anxious. Lungs: Crackles Labs Labs: Laboratory Tests Test 10/10/20 11:45 10/10/20 11:55 10/10/20 16:59 10/10/20 20:53 White Blood Count 9.5 x10^3/uL (4.0-11.0) Red Blood Count 4.09 x10^6/uL (3.50-5.40) Hemoglobin 11.9 g/dL (12.0-15.5) Hematocrit 36.9 % (36.0-47.0) Mean Corpuscular Volume 90 fL (79-100) Mean Corpuscular Hemoglobin 29 pg (25-35) Mean Corpuscular Hemoglobin Concent 32 g/dL (31-37) Red Cell Distribution Width 14.9 % (11.5-14.5) Platelet Count 228 x10^3/uL (140-400) Neutrophils (%) (Auto) 88 % (31-73) Lymphocytes (%) (Auto) 9 % (24-48) Monocytes (%) (Auto) 3 % (0-9) Eosinophils (%) (Auto) 0 % (0-3) Basophils (%) (Auto) 0 % (0-3) Neutrophils # (Auto) 8.4 x10^3/uL (1.8-7.7) Lymphocytes # (Auto) 0.9 x10^3/uL (1.0-4.8) Monocytes # (Auto) 0.2 x10^3/uL (0.0-1.1) Eosinophils # (Auto) 0.0 x10^3/uL (0.0-0.7) Basophils # (Auto) 0.0 x10^3/uL (0.0-0.2) Segmented Neutrophils % 77 % (35-66) Band Neutrophils % 1 % (0-9) Lymphocytes % 17 % (24-48) Atypical Lymphocytes % (Manual) 1 % (0-0) Monocytes % 4 % (0-10) Platelet Estimate Adequate (ADEQUATE) Prothrombin Time 15.9 SEC (11.7-14.0) Prothromb Time International Ratio 1.3 (0.8-1.1) Sodium Level 140 mmol/L (136-145) Potassium Level 4.4 mmol/L (3.5-5.1) Chloride Level 104 mmol/L (98-107) Carbon Dioxide Level 27 mmol/L (21-32) Anion Gap 9 (6-14) Blood Urea Nitrogen 27 mg/dL (7-20) Creatinine 1.1 mg/dL (0.6-1.0) Estimated GFR (Cockcroft-Gault) 50.8 Glucose Level 190 mg/dL (70-99) Calcium Level 10.7 mg/dL (8.5-10.1) Magnesium Level 2.2 mg/dL (1.8-2.4) Glucose (Fingerstick) 205 mg/dL (70-99) 123 mg/dL (70-99) 106 mg/dL (70-99) Test 10/11/20 05:30 10/11/20 07:25 Prothrombin Time 18.3 SEC (11.7-14.0) Prothromb Time International Ratio 1.6 (0.8-1.1) Glucose (Fingerstick) 131 mg/dL (70-99) Assessment and Plan Assessmemt and Plan Problems Medical Problems: (1) Cellulitis Status: Acute (2) Person under investigation for COVID-19 Status: Acute (3) Pneumonia Status: Acute Comment Review of Relevant I have reviewed the following items figueroa (where applicable) has been applied. Medications: Current Medications Medications (Trade) Dose Ordered Sig/Linda Route PRN Reason Start Time Stop Time Status Last Admin Dose Admin Warfarin Sodium (Coumadin) 10 mg 1X WARF ONCE PO 10/10/20 16:00 10/10/20 16:01 DC 10/10/20 16:54 Albuterol Sulfate (Ventolin Neb Soln) 2.5 mg PRN Q4HRS PRN NEB SHORTNESS OF BREATH 10/11/20 01:30 10/11/20 01:28 Justifications for Admission Other Justification MIC GUSTAFSON MD Oct 11, 2020 10:50
[2020-10-11 11:00] VITALS: BP 155/75
--- NOTE | 2020-10-11 13:35 | PDOC ---
PULMONARY PROGRESS NOTES DATE: 10/11/20 TIME: 13:34 Subjective pt. is on 3 liters N/C Continues to have a nonproductive cough Afebrile Up to the chair on exam no overnight events Vitals Vital Signs Date Time Temp Pulse Resp B/P (MAP) Pulse Ox O2 Delivery O2 Flow Rate FiO2 10/11/20 11:00 97.6 70 18 155/75 (101) 93 Nasal Cannula 2.0 97.6 ROS: No Nausea, No Chest Pain, No Abdominal Pain, No Increase Cough Lungs: Crackles Cardiovascular: S1, S2 Abdomen: Soft Neuro Exam: Alert Labs Laboratory Tests Test 10/09/20 16:16 10/09/20 20:42 10/10/20 08:42 10/10/20 11:45 Prothrombin Time 15.0 SEC (11.7-14.0) 15.9 SEC (11.7-14.0) Prothromb Time International Ratio 1.2 (0.8-1.1) 1.3 (0.8-1.1) Glucose (Fingerstick) 175 mg/dL (70-99) 134 mg/dL (70-99) White Blood Count 9.5 x10^3/uL (4.0-11.0) Red Blood Count 4.09 x10^6/uL (3.50-5.40) Hemoglobin 11.9 g/dL (12.0-15.5) Hematocrit 36.9 % (36.0-47.0) Mean Corpuscular Volume 90 fL (79-100) Mean Corpuscular Hemoglobin 29 pg (25-35) Mean Corpuscular Hemoglobin Concent 32 g/dL (31-37) Red Cell Distribution Width 14.9 % (11.5-14.5) Platelet Count 228 x10^3/uL (140-400) Neutrophils (%) (Auto) 88 % (31-73) Lymphocytes (%) (Auto) 9 % (24-48) Monocytes (%) (Auto) 3 % (0-9) Eosinophils (%) (Auto) 0 % (0-3) Basophils (%) (Auto) 0 % (0-3) Neutrophils # (Auto) 8.4 x10^3/uL (1.8-7.7) Lymphocytes # (Auto) 0.9 x10^3/uL (1.0-4.8) Monocytes # (Auto) 0.2 x10^3/uL (0.0-1.1) Eosinophils # (Auto) 0.0 x10^3/uL (0.0-0.7) Basophils # (Auto) 0.0 x10^3/uL (0.0-0.2) Segmented Neutrophils % 77 % (35-66) Band Neutrophils % 1 % (0-9) Lymphocytes % 17 % (24-48) Atypical Lymphocytes % (Manual) 1 % (0-0) Monocytes % 4 % (0-10) Platelet Estimate Adequate (ADEQUATE) Sodium Level 140 mmol/L (136-145) Potassium Level 4.4 mmol/L (3.5-5.1) Chloride Level 104 mmol/L (98-107) Carbon Dioxide Level 27 mmol/L (21-32) Anion Gap 9 (6-14) Blood Urea Nitrogen 27 mg/dL (7-20) Creatinine 1.1 mg/dL (0.6-1.0) Estimated GFR (Cockcroft-Gault) 50.8 Glucose Level 190 mg/dL (70-99) Calcium Level 10.7 mg/dL (8.5-10.1) Magnesium Level 2.2 mg/dL (1.8-2.4) Test 10/10/20 11:55 10/10/20 16:59 10/10/20 20:53 10/11/20 05:30 Glucose (Fingerstick) 205 mg/dL (70-99) 123 mg/dL (70-99) 106 mg/dL (70-99) Prothrombin Time 18.3 SEC (11.7-14.0) Prothromb Time International Ratio 1.6 (0.8-1.1) Test 10/11/20 07:25 Glucose (Fingerstick) 131 mg/dL (70-99) Laboratory Tests Test 10/10/20 16:59 10/10/20 20:53 10/11/20 05:30 10/11/20 07:25 Glucose (Fingerstick) 123 mg/dL (70-99) 106 mg/dL (70-99) 131 mg/dL (70-99) Prothrombin Time 18.3 SEC (11.7-14.0) Prothromb Time International Ratio 1.6 (0.8-1.1) Medications Active Scripts Medications Dose Route/Sig Max Daily Dose Days Date Category Albuterol Sulfate Neb Soln (Albuterol Sulfate) 2.5 Mg/3 Ml Vial.neb 1 Vial NEB PRN Q4HRS 10/09/20 Reported Proair Hfa (Albuterol Sulfate) 8.5 Gm Hfa.aer.ad 2 Puff IH PRN Q4-6HRS PRN 21 10/09/20 Reported Acetaminophen 500 Mg Tablet 2 Tab PO PRN Q6HRS PRN 15 10/09/20 Reported Robitussin Cough-Chest Dm Liq (Guaifenesin/Dextromethorphan) 237 Ml Liquid 5 Ml PO Q4-6HRS PRN 10/09/20 Reported Saline Nasal Etoile (Sodium Chloride) 30 Ml Etoile 1-2 Etoile NS QID 10/09/20 Reported Vitamin D2 (Ergocalciferol (Vitamin D2)) 1,250 Mcg Capsule 1,250 Mcg PO 3X/WEEK 10/09/20 Reported Advair 500-50 Diskus (Fluticasone/Salmeterol) 1 Each Disk.w.dev 1 Puff IH BID 10/09/20 Reported Premarin (Estrogens, Conjugated) 30 Gm Cream.appl 0.5 Gm VG TWICE WEEKLY 10/09/20 Reported Zofran (Ondansetron Hcl) 4 Mg Tablet 8 Mg PO BID PRN 10/09/20 Reported Warfarin Sodium 10 Mg Tablet 10 Mg PO DAILY 10/09/20 Reported Warfarin Sodium 1 Mg Tablet 1 Mg PO DAILY 10/09/20 Reported Montelukast Sodium Tablet (Montelukast Sodium) 10 Mg Tablet 10 Mg PO HS 10/09/20 Reported Ropinirole Hcl 1 Mg Tablet 1 Mg PO DAILY 10/09/20 Reported Atorvastatin Calcium 80 Mg Tablet 80 Mg PO QHS 10/09/20 Reported Tramadol Hcl 50 Mg Tablet 50 Mg PO BID PRN 10/09/20 Reported Gabapentin (Gabapentin) 300 Mg Capsule 900 Mg PO TID 10/09/20 Reported Isosorbide Mononitrate Er (Isosorbide Mononitrate) 30 Mg Tab.er.24h 1 Tab PO DAILY 10/09/20 Reported Zonegran (Zonisamide) 100 Mg Capsule 2 Cap PO DAILY 30 10/09/20 Reported Cymbalta (Duloxetine Hcl) 60 Mg Capsule.dr 2 Cap PO DAILY 10/09/20 Reported Comments CXR Impression: 1. Diffuse interstitial thickening, can be seen with pulmonary edema although a component of chronic interstitial changes is possible. Impression . IMPRESSION: 1. Abnormal x-ray revealing bilateral pulmonary infiltrates, some chronic in nature, possibly interstitial lung disease with concurrent acute pulmonary edema. 2. Chronic respiratory failure. 3. Sarcoid status post mediastinoscopy in 2000. 4. Fibromyalgia. 5. 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 6. Chronic lower extremity cellulitis with new onset of cellulitis. 7. Negative venous Dopplers of lower extremities. 8. Abnormal chest x-ray. 9. Morbid obesity. 10. Hypertension. 11. Diabetes. 12. History of migraine headaches. Plan . PLAN: Continue current oxygen supplementation to keep sats above 92%, currently on 3 lites N/C, reports she wears 4 L nasal cannula at home at baseline Continue ABX per ID: On Zyvox We will add cough syrup for symptomatic treatment of cough Bilateral lower extremities U/S negative for DVT Follow wound care's recommendations Urine culture, preliminary growing gram-negative rods COVID_19 negative, influenza negative HTN per PCP DVT/GI PPX PT/OT D/W MILY PORTILLO MD Oct 11, 2020 13:35
[2020-10-11] MEDS: traMADol 50 MG TABLET PO PRN (14:00)
--- NOTE | 2020-10-11 14:37 | NUR ---
Pharmacy Warfarin Dosing Note S: Pharmacy consulted to assist with anticoagulation therapy O: ELAD ANDREWS is a 59 year old F with h/o VTE LABS: Last INR: 1.6 Last HGB: 11.9 Last HCT: 36.9 Last PLT: 228 Last dose of 10 mg given on 10/10/20 at 1654 Vitamin K given: N Ongoing Drug Interactions: duloxetine A:INR of 1.6 is below desired range. Target range for this patient is: 2 - 3 P: Warfarin dose: 10 mg Today at 1600 Bridge Therapy: None Next INR due 10/12/20 Pharmacy anticoagulation service will continue to follow. USAMA BALES [facility], 10/11/20 [id number]
[2020-10-11 15:00] VITALS: BP 182/83
[2020-10-11] MEDS ORDERED: WARFARIN 5 MG TABLET. PO ONE (16:00)
[2020-10-11 19:00] VITALS: BP 138/80
[2020-10-11] MEDS: MONTELUKAST SODIUM 10 MG TABLET. PO SCH (21:21)
[2020-10-11] MEDS: ATORVASTATIN CALCIUM 40 MG TABLET. PO SCH (21:22)
[2020-10-11 23:00] VITALS: BP 127/61
[2020-10-12] MEDS: traMADol 50 MG TABLET PO PRN (01:44)
[2020-10-12 03:00] VITALS: BP 119/74
[2020-10-12 05:47] LABS: PROTHROMBIN TIME PATIENT 19.7 SEC (11.7-14.0)
[2020-10-12] MEDS: IPRATRPIUM/ALBUTEROL 0.5/2.5MG 3 ML NEBU. NEB SCH ×4 (07:29→15:17)
[2020-10-12 07:59] VITALS: BP 150/67
[2020-10-12] MEDS: MULTIVITAMIN with MINERAL TABLET. PO SCH (09:30)
[2020-10-12] MEDS: methylPREDNISolone SOD SUCC PF 40 MG/ML VIAL. IV SCH (09:30)
[2020-10-12] MEDS: ZONISAMIDE 100 MG CAPSULE. PO SCH (09:30)
[2020-10-12] MEDS: DULoxetine HCL 30 MG CAPSULE.DR PO SCH (09:30)
[2020-10-12] MEDS: rOPINIRole 1 MG TABLET. PO SCH (09:31)
[2020-10-12] MEDS: GABAPENTIN 300 MG CAPSULE. PO SCH (09:31)
[2020-10-12] MEDS: ISOSORBIDE MONONITRATE ER 30 MG TAB.ER.24H PO SCH (09:31)
--- NOTE | 2020-10-12 10:24 | NUR ---
Pharmacy Warfarin Dosing Note S:Pharmacy consulted to assist with anticoagulation therapy started with target INR: 2 -3 O:ELDA ANDREWS is a 59 year old F with h/o VTE LABS: Last INR: 1.7 Last HGB: 11.9 Last HCT: 36.9 Last PLT: 228 Last dose of 10 mg given on 10/11/20 at 1750 Previous Regimen: 10 mg daily except 9 mg Mon/ Vitamin K given: N Drug Interaction Changes: Same Interacting Drug Ongoing Drug Interactions: duloxetine A:INR of 1.7 is below desired range. Target range for this patient is: 2 -3 P: Warfarin dose: 10 mg Today at 1600 Bridge Therapy: None Next INR due 10/13/20 Pharmacy anticoagulation service will continue to follow. BENJAMÍN CARREON [facility], 10/12/20 [id number]
--- NOTE | 2020-10-12 11:37 | PDOC ---
PULMONARY PROGRESS NOTES DATE: 10/12/20 TIME: 11:37 Subjective pt. is on 3 liters N/C No new symptom Vitals Vital Signs Date Time Temp Pulse Resp B/P (MAP) Pulse Ox O2 Delivery O2 Flow Rate FiO2 10/12/20 11:34 98 Nasal Cannula 3.0 10/12/20 09:31 70 150/67 10/12/20 07:59 20 10/12/20 03:00 98.6 98.6 ROS: No Nausea, No Chest Pain, No Abdominal Pain, No Increase Cough Lungs: Crackles Cardiovascular: S1, S2 Abdomen: Soft Neuro Exam: Alert Labs Laboratory Tests Test 10/10/20 11:45 10/10/20 11:55 10/10/20 16:59 10/10/20 20:53 White Blood Count 9.5 x10^3/uL (4.0-11.0) Red Blood Count 4.09 x10^6/uL (3.50-5.40) Hemoglobin 11.9 g/dL (12.0-15.5) Hematocrit 36.9 % (36.0-47.0) Mean Corpuscular Volume 90 fL (79-100) Mean Corpuscular Hemoglobin 29 pg (25-35) Mean Corpuscular Hemoglobin Concent 32 g/dL (31-37) Red Cell Distribution Width 14.9 % (11.5-14.5) Platelet Count 228 x10^3/uL (140-400) Neutrophils (%) (Auto) 88 % (31-73) Lymphocytes (%) (Auto) 9 % (24-48) Monocytes (%) (Auto) 3 % (0-9) Eosinophils (%) (Auto) 0 % (0-3) Basophils (%) (Auto) 0 % (0-3) Neutrophils # (Auto) 8.4 x10^3/uL (1.8-7.7) Lymphocytes # (Auto) 0.9 x10^3/uL (1.0-4.8) Monocytes # (Auto) 0.2 x10^3/uL (0.0-1.1) Eosinophils # (Auto) 0.0 x10^3/uL (0.0-0.7) Basophils # (Auto) 0.0 x10^3/uL (0.0-0.2) Segmented Neutrophils % 77 % (35-66) Band Neutrophils % 1 % (0-9) Lymphocytes % 17 % (24-48) Atypical Lymphocytes % (Manual) 1 % (0-0) Monocytes % 4 % (0-10) Platelet Estimate Adequate (ADEQUATE) Prothrombin Time 15.9 SEC (11.7-14.0) Prothromb Time International Ratio 1.3 (0.8-1.1) Sodium Level 140 mmol/L (136-145) Potassium Level 4.4 mmol/L (3.5-5.1) Chloride Level 104 mmol/L (98-107) Carbon Dioxide Level 27 mmol/L (21-32) Anion Gap 9 (6-14) Blood Urea Nitrogen 27 mg/dL (7-20) Creatinine 1.1 mg/dL (0.6-1.0) Estimated GFR (Cockcroft-Gault) 50.8 Glucose Level 190 mg/dL (70-99) Calcium Level 10.7 mg/dL (8.5-10.1) Magnesium Level 2.2 mg/dL (1.8-2.4) Glucose (Fingerstick) 205 mg/dL (70-99) 123 mg/dL (70-99) 106 mg/dL (70-99) Test 10/11/20 05:30 10/11/20 07:25 10/11/20 11:09 10/11/20 16:27 Prothrombin Time 18.3 SEC (11.7-14.0) Prothromb Time International Ratio 1.6 (0.8-1.1) Glucose (Fingerstick) 131 mg/dL (70-99) 167 mg/dL (70-99) 167 mg/dL (70-99) Test 10/11/20 20:43 10/12/20 05:10 10/12/20 07:45 10/12/20 11:17 Glucose (Fingerstick) 200 mg/dL (70-99) 121 mg/dL (70-99) 153 mg/dL (70-99) Prothrombin Time 19.7 SEC (11.7-14.0) Prothromb Time International Ratio 1.7 (0.8-1.1) Laboratory Tests Test 10/11/20 16:27 10/11/20 20:43 10/12/20 05:10 10/12/20 07:45 Glucose (Fingerstick) 167 mg/dL (70-99) 200 mg/dL (70-99) 121 mg/dL (70-99) Prothrombin Time 19.7 SEC (11.7-14.0) Prothromb Time International Ratio 1.7 (0.8-1.1) Test 10/12/20 11:17 Glucose (Fingerstick) 153 mg/dL (70-99) Medications Active Scripts Medications Dose Route/Sig Max Daily Dose Days Date Category Albuterol Sulfate Neb Soln (Albuterol Sulfate) 2.5 Mg/3 Ml Vial.neb 1 Vial NEB PRN Q4HRS 10/09/20 Reported Proair Hfa (Albuterol Sulfate) 8.5 Gm Hfa.aer.ad 2 Puff IH PRN Q4-6HRS PRN 21 10/09/20 Reported Acetaminophen 500 Mg Tablet 2 Tab PO PRN Q6HRS PRN 15 10/09/20 Reported Robitussin Cough-Chest Dm Liq (Guaifenesin/Dextromethorphan) 237 Ml Liquid 5 Ml PO Q4-6HRS PRN 10/09/20 Reported Saline Nasal [place] (Sodium Chloride) 30 Ml [place] 1-2 [place] NS QID 10/09/20 Reported Vitamin D2 (Ergocalciferol (Vitamin D2)) 1,250 Mcg Capsule 1,250 Mcg PO 3X/WEEK 10/09/20 Reported Advair 500-50 Diskus (Fluticasone/Salmeterol) 1 Each Disk.w.dev 1 Puff IH BID 10/09/20 Reported Premarin (Estrogens, Conjugated) 30 Gm Cream.appl 0.5 Gm VG TWICE WEEKLY 10/09/20 Reported Zofran (Ondansetron Hcl) 4 Mg Tablet 8 Mg PO BID PRN 10/09/20 Reported Warfarin Sodium 10 Mg Tablet 10 Mg PO DAILY 10/09/20 Reported Warfarin Sodium 1 Mg Tablet 1 Mg PO DAILY 10/09/20 Reported Montelukast Sodium Tablet (Montelukast Sodium) 10 Mg Tablet 10 Mg PO HS 10/09/20 Reported Ropinirole Hcl 1 Mg Tablet 1 Mg PO DAILY 10/09/20 Reported Atorvastatin Calcium 80 Mg Tablet 80 Mg PO QHS 10/09/20 Reported Tramadol Hcl 50 Mg Tablet 50 Mg PO BID PRN 10/09/20 Reported Gabapentin (Gabapentin) 300 Mg Capsule 900 Mg PO TID 10/09/20 Reported Isosorbide Mononitrate Er (Isosorbide Mononitrate) 30 Mg Tab.er.24h 1 Tab PO DAILY 10/09/20 Reported Zonegran (Zonisamide) 100 Mg Capsule 2 Cap PO DAILY 30 10/09/20 Reported Cymbalta (Duloxetine Hcl) 60 Mg Capsule.dr 2 Cap PO DAILY 10/09/20 Reported Comments CXR Impression: 1. Diffuse interstitial thickening, can be seen with pulmonary edema although a component of chronic interstitial changes is possible. Impression . IMPRESSION: 1. Abnormal x-ray revealing bilateral pulmonary infiltrates, some chronic in nature, possibly interstitial lung disease with concurrent acute pulmonary edema. 2. Chronic respiratory failure. 3. Sarcoid status post mediastinoscopy in 2000. 4. Fibromyalgia. 5. 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 6. Chronic lower extremity cellulitis with new onset of cellulitis. 7. Negative venous Dopplers of lower extremities. 8. Abnormal chest x-ray. 9. Morbid obesity. 10. Hypertension. 11. Diabetes. 12. History of migraine headaches. Plan . Discharge home today Continue current oxygen supplementation to keep sats above 92%, currently on 3 lites N/C, reports she wears 4 L nasal cannula at home at baseline Antibiotics per ID We will add cough syrup for symptomatic treatment of cough Bilateral lower extremities U/S negative for DVT Follow wound care's recommendations Urine culture, preliminary growing gram-negative rods COVID_19 negative, influenza negative HTN per PCP DVT/GI PPX PT/OT D/W MILY PORTILLO MD Oct 12, 2020 11:37
--- NOTE | 2020-10-12 11:56 | PDOC ---
Infectious Disease Note Subjective Subjective Patient without complaints Feels better Vital Sign Vital Signs Vital Signs Date Time Temp Pulse Resp B/P (MAP) Pulse Ox O2 Delivery O2 Flow Rate FiO2 10/12/20 11:34 98 Nasal Cannula 3.0 10/12/20 09:31 70 150/67 10/12/20 07:59 20 10/12/20 03:00 98.6 98.6 Physical Exam PHYSICAL EXAM GENERAL: Alert, oriented x 3 female, sitting upright in a chair, on O2 by nasal cannula. HEENT: Normocephalic, atraumatic. Anicteric. Oral mucosa moist. NECK: Supple. LUNGS: Clear bilaterally with few expiratory rhonchi. HEART: S1, S2. No gallops or murmurs. ABDOMEN: Soft, obese. Bowel sounds present. EXTREMITIES: Dressing in the right lower extremity taken down, chronic wound, mild superficial erythema, chronic edema, chronic venous stasis changes present. NEUROLOGIC: Alert and oriented x 3, grossly nonfocal. PSYCHIATRIC: Cooperative. Appears anxious. Labs Lab Laboratory Tests Test 10/11/20 16:27 10/11/20 20:43 10/12/20 05:10 10/12/20 07:45 Glucose (Fingerstick) 167 mg/dL (70-99) 200 mg/dL (70-99) 121 mg/dL (70-99) Prothrombin Time 19.7 SEC (11.7-14.0) Prothromb Time International Ratio 1.7 (0.8-1.1) Test 10/12/20 11:17 Glucose (Fingerstick) 153 mg/dL (70-99) Micro Microbiology 10/08/20 Urine Culture - Final, Complete 10/08/20 Antimicrobic Susceptibility - Final, Complete Objective Assessment 1. Left lower extremity cellulitis with underlying chronic left lower extremity wound. 2. Chronic venous stasis changes present in both lower extremities. 3. Chronic lower extremity edema. 4. Generalized weakness. 5. Acute on chronic hypoxic respiratory failure. 6. Diabetes. 7. Chronic obstructive pulmonary disease. 8. History of pulmonary embolism/deep vein thrombosis. 9. Port-A-Cath, right chest wall, clean. 10. Fibromyalgia. 11. COVID 19 neg 12. Chronic kidney disease status post nephrectomy. 13. Multiple allergies, though the patient is tolerating his azithromycin well. Plan Plan of Care d/c zyvox COVID-19 reported negative Follow up labs and cultures. Continue local wound care as directed. Continue supportive care. Can be discharged from ID standpoint Prescription in chart JESUS BORDEN MD Oct 12, 2020 11:56
[2020-10-12 11:59] VITALS: BP 143/67
[2020-10-12] MEDS ORDERED: LINE600T12 PO (13:28)
[2020-10-12] MEDS ORDERED: LACT1CAP19 PO (13:28)
--- NOTE | 2020-10-12 13:51 | SNU/HH DC ---
DISCHARGE WITH HOME HEALTH DISCHARGE INFORMATION: Discharge Date: Oct 12, 2020 Final Diagnosis: Problems Medical Problems: (1) Cellulitis Status: Acute (2) Person under investigation for COVID-19 Status: Acute (3) Pneumonia Status: Acute Condition on Discharge: Stable CODE STATUS: Code Status: Full HOME HEALTH: Face to Face: I certify this patient is under my care and that I, or a nurse practitioner or physician's assistant merchandise manager working with me, had a face to face encounter that meets the physician face to face encounter requirements with this patient on 10/12/2020. Fdc For: Assess & Educate Safety, Medication Management RN For Eval/Treatment: Yes Physical Therapy For: Evalulation/Treatment Occupational Therapy For: Evaluation/Treatment Pt Meets Homebound Status: Unsteady balance w/ amb,, Extreme weakness w/ amb., Limited distance walking POST DISCHARGE ORDERS: Activity Instructions for Disc: Activity as tolerated Weight Bearing Status after Di: No restrictions DIET AFTER DISCHARGE: Cardiac CHECKS AFTER DISCHARGE: Checks after discharge: Check blood press - daily, Check your Temp as needed FOLLOW-UP: Follow Up With: your primary care provider in 1-2 weeks Warfarin Follow UP: INR goal 2-3 TREATMENT/EQUIPMENT ORDERS: Adaptive Equipment Issued: None CERTIFICATION STATEMENT: Certification Statement: Certification Statement: Based on the above finding, I certify that this patient is confined to the home and needs intermittent prison care, physical therapy and/or speech therapy, or continues to need occupational therapy.~ This patient is under my care, and I have initiated the establishment of the plan of care.~ This patient will be followed by myself or a community physician who will periodically review the plan of care. Home Meds Active Scripts Linezolid (ZYVOX) 600 Mg Tablet, 600 MG PO BID for Cellulitis/UTI for 7 Days, # 14 TAB Prov:FELIPA HUYNH MD 10/12/20 Lactobacillus Rhamnosus Gg (CULTURELLE) 1 Each Cap.sprink, 1 CAP PO BID for Diarrhea for 7 Days, #14 CAP Prov:FELIPA HUYNH MD 10/12/20 Reported Medications Albuterol Sulfate (ALBUTEROL SULFATE NEB SOLN) 2.5 Mg/3 Ml Vial.neb, 1 VIAL NEB PRN Q4HRS for wheezing, #50 VIAL 10/09/20 Albuterol Sulfate (Proair Hfa) 8.5 Gm Hfa.aer.ad, 2 PUFF IH PRN Q4-6HRS PRN for wheezing for 21 Days, #1 INHALER 0 Refills 10/09/20 Acetaminophen (ACETAMINOPHEN) 500 Mg Tablet, 2 TAB PO PRN Q6HRS PRN for pain or fever for 15 Days, #60 TAB 0 Refills 10/09/20 Guaifenesin/Dextromethorphan (Robitussin Cough-Chest Dm Liq) 237 Ml Liquid, 5 ML PO Q4-6HRS PRN for CONSTIPATION, LIQUID 10/09/20 Sodium Chloride (SALINE NASAL SPRAY) 30 Ml [place], 1-2 SPRAY NS QID for nasal dryness, #30 ML 10/09/20 Ergocalciferol (Vitamin D2) (Vitamin D2) 1,250 Mcg Capsule, 1250 MCG PO 3X/WEEK for supplement, CAP 10/09/20 Fluticasone/Salmeterol (ADVAIR 500-50 DISKUS) 1 Each Disk.w.dev, 1 PUFF IH BID for asthma, #1 INHALER 5 Refills 10/09/20 Estrogens, Conjugated (PREMARIN) 30 Gm Cream.appl, 0.5 GM VG TWICE WEEKLY for vaginal dryness, #45 GM 11 Refills 10/09/20 Ondansetron Hcl (ZOFRAN) 4 Mg Tablet, 8 MG PO BID PRN for NAUSEA/VOMITING, TAB 10/09/20 Warfarin Sodium (WARFARIN SODIUM) 10 Mg Tablet, 10 MG PO DAILY for DVT, TAB 10/09/20 Warfarin Sodium (WARFARIN SODIUM) 1 Mg Tablet, 1 MG PO DAILY for recurrent DVT, TAB 10/09/20 Montelukast Sodium (MONTELUKAST SODIUM TABLET ) 10 Mg Tablet, 10 MG PO HS for FOR ASTHMA, TAB 0 Refills 10/09/20 Ropinirole Hcl (ROPINIROLE HCL) 1 Mg Tablet, 1 MG PO DAILY for RLS, TAB 10/09/20 Atorvastatin Calcium (Atorvastatin Calcium) 80 Mg Tablet, 80 MG PO QHS for FOR HIGH CHOLESTEROL, TAB 10/09/20 Tramadol Hcl (TRAMADOL HCL) 50 Mg Tablet, 50 MG PO BID PRN for PAIN, TAB 0 Refills 10/09/20 Gabapentin (GABAPENTIN ) 300 Mg Capsule, 900 MG PO TID for NEUROGENIC PAIN, CAP 10/09/20 Isosorbide Mononitrate (ISOSORBIDE MONONITRATE ER) 30 Mg Tab.er.24h, 1 TAB PO DAILY for CAD, #30 TAB 5 Refills 10/09/20 Zonisamide (ZONEGRAN) 100 Mg Capsule, 2 CAP PO DAILY for seizure for 30 Days, #60 CAP 0 Refills 10/09/20 Duloxetine Hcl (CYMBALTA) 60 Mg Capsule.dr, 2 CAP PO DAILY for depression, #90 CAP 3 Refills 10/09/20 FELIPA HUYNH MD Oct 12, 2020 13:51
--- NOTE | 2020-10-12 13:57 | PDOC ---
[facility] [facility] PROGRESS NOTE Date of Service DOS: DATE: 10/12/20 TIME: 13:52 Chief Complaint Chief Complaint A/P: Left lower extremity cellulitis with underlying chronic left lower extremity wound. CAP likely gram-negative Generalized malaise Chronic venous stasis changes present in both lower extremities. Chronic lower extremity edema. Generalized weakness. Acute on chronic hypoxic respiratory failure. Diabetes. Chronic obstructive pulmonary disease. History of pulmonary embolism/deep vein thrombosis. Port-A-Cath, right chest wall, clean. Fibromyalgia. COVID 19 neg Chronic kidney disease status post nephrectomy. Multiple allergies, though the patient is tolerating his azithromycin well. Sarcoid status post mediastinoscopy in 2000. Abnormal chest x-ray. Morbid obesity. History of migraine headaches. Resume all home medications Warfarin for DVT prophylaxis ADA diet Full code Discussed with RN and SW Disposition inpatient management as above Surrogate decision maker is Lazarus Barillas History of Present Illness History of Present Illness Ms Rosales is a 59-year-old morbidly obese w/ PMHx sarcoid, HTN, DM2, chronic venous stasis dermatitis, COPD and ILD on home O2 who p/w sore throat, cough, chest pain, dizziness, syncope, urinary symptoms, left lower leg wounds and fatigue for the past month. She also has some pelvic pain and loss of smell and body aches and nausea, vomiting, shortness of breath. This has been going on for 2 weeks. The left lower extremity is also swollen. Apparently, she wears 4 liters of oxygen at home. Clinically, we were concerned she could have COVID-19 which was negative. CXR shows diffuse interstitial thickening. Consults: Infectious Disease and Pulmonary. 10/09: No acute events overnight. Patient is sitting in the recliner and states she is feeling okay. States that he tries to smile because she has some knee problems. She did have a bowel movement this morning. 1/2: Continues to complain of generalized body aches. Saturating 92% on 2 L nasal cannula. Patient's chart, labs, images were reviewed and discussed with RN 3: No acute events overnight. Patient does feels slightly better. Saturating 98% on 3 L nasal cannula. Patient wears oxygen at home at 4 L nasal cannula. Afebrile back on home O2. Cellulitis improved with IV Zyvox changed to p.o. She does have INR monitoring which was previously covered with [employer] through [facility] and she would like to restart this due to her hospitalization and weakness. Shortness of breath improved cough improved. No chest pain. Vitals/I&O Vitals/I&O: Vital Signs Date Time Temp Pulse Resp B/P (MAP) Pulse Ox O2 Delivery O2 Flow Rate FiO2 10/12/20 11:59 63 20 143/67 (92) 95 Nasal Cannula 3.0 10/12/20 03:00 98.6 98.6 I & O 10/11/20 10/11/20 10/12/20 15:00 23:00 07:00 Intake Total 550 ml 300 ml Balance 550 ml 300 ml Physical Exam Physical Exam: GENERAL: Alert, oriented x 3 female, sitting upright in a chair, on O2 by nasal cannula. HEENT: Normocephalic, atraumatic. Anicteric. Oral mucosa moist. NECK: Supple. LUNGS: Clear bilaterally with few expiratory rhonchi. HEART: S1, S2. No gallops or murmurs. ABDOMEN: Soft, obese. Bowel sounds present. EXTREMITIES: Dressing in the right lower extremity taken down, chronic wound, mild superficial erythema, chronic edema, chronic venous stasis changes present. NEUROLOGIC: Alert and oriented x 3, grossly nonfocal. PSYCHIATRIC: Cooperative. Appears anxious. Lungs: Crackles Labs Labs: Laboratory Tests Test 10/11/20 16:27 10/11/20 20:43 10/12/20 05:10 10/12/20 07:45 Glucose (Fingerstick) 167 mg/dL (70-99) 200 mg/dL (70-99) 121 mg/dL (70-99) Prothrombin Time 19.7 SEC (11.7-14.0) Prothromb Time International Ratio 1.7 (0.8-1.1) Test 10/12/20 11:17 Glucose (Fingerstick) 153 mg/dL (70-99) Assessment and Plan Assessmemt and Plan Problems Medical Problems: (1) Cellulitis Status: Acute (2) Person under investigation for COVID-19 Status: Acute (3) Pneumonia Status: Acute Comment Review of Relevant I have reviewed the following items figueroa (where applicable) has been applied. Medications: Current Medications Medications (Trade) Dose Ordered Sig/Linda Route PRN Reason Start Time Stop Time Status Last Admin Dose Admin Warfarin Sodium (Coumadin) 10 mg 1X WARF ONCE PO 10/11/20 16:00 10/11/20 16:01 DC 10/11/20 17:50 Justifications for Admission Other Justification FELIPA HUYNH MD Oct 12, 2020 13:57
--- NOTE | 2020-10-12 13:59 | PDOC3 ---
Discharge Summary Visit Information Date of Admission: Oct 08, 2020 Date of Discharge: Oct 12, 2020 Admitting Diagnosis: CAP, Cellulitis Final Diagnosis Problems Medical Problems: (1) Cellulitis Status: Acute (2) Person under investigation for COVID-19 Status: Acute (3) Pneumonia Status: Acute Brief Hospital Course Allergies Allergies Coded Allergies Type Severity Reaction Last Updated Verified Iodine and Iodide Containing Produc Allergy Severe fever, nausea, swelling 10/09/20 Yes Penicillins Allergy Severe hives, nausea, vomiting, shortness of breath Yes Sulfa (Sulfonamide Antibiotics) Allergy Severe fever, nausea, vomiting, rash, shortness of breath, swelling 10/08/20 Yes aspirin Allergy Severe nausea, vomiting, rash, shortness of breath 10/08/20 Yes ceftriaxone Allergy Severe shortness of breath, hives 10/08/20 Yes adhesive tape Allergy Intermediate rash, swelling 10/08/20 Yes bee pollen Allergy Intermediate swelling 10/08/20 Yes ciprofloxacin Allergy Intermediate diarrhea, hives, itching, nausea, vomiting 10/08/20 Yes clarithromycin Allergy Intermediate rash 10/08/20 Yes clindamycin Allergy Intermediate rash 10/08/20 Yes doxycycline Allergy Intermediate fever, hives, rash 10/08/20 Yes estrogens, conjugated Allergy Intermediate 10/09/20 Yes hydrocodone Allergy Intermediate nausea and vomiting 10/08/20 Yes latex Allergy Intermediate hives, itching 10/08/20 Yes levofloxacin Allergy Intermediate fever, rash 10/08/20 Yes phenazopyridine Allergy Intermediate fever, hives, nausea, vomiting 10/08/20 Yes silicone Allergy Intermediate 10/09/20 Yes trovafloxacin Allergy Intermediate fever, rash 10/08/20 Yes Cephalosporins Adverse Reaction Intermediate nausea, vomiting 10/08/20 Yes azithromycin Adverse Reaction Intermediate nausea and vomiting 10/08/20 Yes loratadine Adverse Reaction Intermediate nausea and vomiting 10/08/20 Yes nitrofurantoin Adverse Reaction Intermediate nausea, and vomiting 10/08/20 Yes ibuprofen Adverse Reaction Mild fever, nausea, and vomiting 10/09/20 Yes Vital Signs Vital Signs Date Time Temp Pulse Resp B/P (MAP) Pulse Ox O2 Delivery O2 Flow Rate FiO2 10/12/20 11:59 63 20 143/67 (92) 95 Nasal Cannula 3.0 10/12/20 03:00 98.6 98.6 Lab Results Laboratory Tests Test 10/10/20 16:59 10/10/20 20:53 10/11/20 05:30 10/11/20 07:25 Glucose (Fingerstick) 123 mg/dL (70-99) 106 mg/dL (70-99) 131 mg/dL (70-99) Prothrombin Time 18.3 SEC (11.7-14.0) Prothromb Time International Ratio 1.6 (0.8-1.1) Test 10/11/20 11:09 10/11/20 16:27 10/11/20 20:43 10/12/20 05:10 Glucose (Fingerstick) 167 mg/dL (70-99) 167 mg/dL (70-99) 200 mg/dL (70-99) Prothrombin Time 19.7 SEC (11.7-14.0) Prothromb Time International Ratio 1.7 (0.8-1.1) Test 10/12/20 07:45 10/12/20 11:17 Glucose (Fingerstick) 121 mg/dL (70-99) 153 mg/dL (70-99) Laboratory Tests Test 10/11/20 16:27 10/11/20 20:43 10/12/20 05:10 10/12/20 07:45 Glucose (Fingerstick) 167 mg/dL (70-99) 200 mg/dL (70-99) 121 mg/dL (70-99) Prothrombin Time 19.7 SEC (11.7-14.0) Prothromb Time International Ratio 1.7 (0.8-1.1) Test 10/12/20 11:17 Glucose (Fingerstick) 153 mg/dL (70-99) Brief Hospital Course Ms Rosales is a 59-year-old morbidly obese w/ PMHx sarcoid, HTN, DM2, chronic venous stasis dermatitis, COPD and ILD on home O2 who p/w sore throat, cough, chest pain, dizziness, syncope, urinary symptoms, left lower leg wounds and fatigue for the past month. She also has some pelvic pain and loss of smell and body aches and nausea, vomiting, shortness of breath. This has been going on for 2 weeks. The left lower extremity is also swollen. Apparently, she wears 4 liters of oxygen at home. Clinically, we were concerned she could have COVID-19 which was negative. CXR shows diffuse interstitial thickening. Consults: Infectious Disease and Pulmonary. 10/09: No acute events overnight. Patient is sitting in the recliner and states she is feeling okay. States that he tries to smile because she has some knee problems. She did have a bowel movement this morning. 10/10: Continues to complain of generalized body aches. Saturating 92% on 2 L nasal cannula. Patient's chart, labs, images were reviewed and discussed with RN 10/11: No acute events overnight. Patient does feels slightly better. Saturating 98% on 3 L nasal cannula. Patient wears oxygen at home at 4 L nasal cannula. Afebrile back on home O2. Cellulitis improved with IV Zyvox changed to p.o. She does have INR monitoring which was previously covered with home health through [facility] and she would like to restart this due to her hospitalization and weakness. Shortness of breath improved cough improved. No chest pain. Problem list: Left lower extremity cellulitis with underlying chronic left lower extremity wound. CAP likely gram-negative Generalized malaise Chronic venous stasis changes present in both lower extremities. Chronic lower extremity edema. Generalized weakness. Acute on chronic hypoxic respiratory failure. Diabetes. Chronic obstructive pulmonary disease. History of pulmonary embolism/deep vein thrombosis. Port-A-Cath, right chest wall, clean. Fibromyalgia. COVID 19 neg Chronic kidney disease status post nephrectomy. Multiple allergies, though the patient is tolerating his azithromycin well. Sarcoid status post mediastinoscopy in 2000. Abnormal chest x-ray. Morbid obesity. History of migraine headaches. Resume all home medications Warfarin for DVT prophylaxis ADA diet Full code Discussed with RN and SW Disposition inpatient management as above Surrogate decision maker is Lazarus Barillas Greater than 30 minutes spent on d/c home with home health Discharge Information Condition at Discharge: Improved Follow Up: Weeks (1) Disposition/Orders: D/C to Home w/ HH Scheduled Albuterol Sulfate (Albuterol Sulfate Neb Soln) 2.5 Mg/3 Ml Vial.neb, 1 VIAL NEB PRN Q4HRS for wheezing, #50 (Reported) Entered as Reported by: YOVANNY PAREDES on 10/09/201533 Last Taken: Unknown Dose on Unknown Date & Time Last Action: New Order on 10/09/201533 by YOVANNY PAREDES Atorvastatin Calcium (Atorvastatin Calcium) 80 Mg Tablet, 80 MG PO QHS for FOR HIGH CHOLESTEROL, (Reported) Entered as Reported by: YOVANNY PAREDES on 10/09/20 1050 Last Taken: Unknown Dose on Unknown Date & Time Last Action: Converted on 10/09/201155 by MIC GUSTAFSON MD Duloxetine Hcl (Cymbalta) 60 Mg Capsule.dr, 2 CAP PO DAILY for depression, #90 Ref 3 (Reported) Entered as Reported by: YOVANNY PAREDES on 10/09/20 1037 Last Taken: Unknown Dose on Unknown Date & Time Last Action: Converted on 10/09/201155 by MIC GUSTAFSON MD Ergocalciferol (Vitamin D2) (Vitamin D2) 1,250 Mcg Capsule, 1,250 MCG PO 3X/WEEK for supplement, (Reported) Entered as Reported by: YOVANNY PAREDES on 10/09/201055 Last Taken: Unknown Dose on Unknown Date & Time Last Action: New Order on 10/09/201055 by YOVANNY PAREDES Estrogens, Conjugated (Premarin) 30 Gm Cream.appl, 0.5 GM VG TWICE WEEKLY for vaginal dryness, #45 Ref 11 (Reported) Entered as Reported by: YOVANNY PAREDES on 10/09/201055 Last Taken: Unknown Dose on Unknown Date & Time Last Action: New Order on 10/09/201055 by YOVANNY PAREDES Fluticasone/Salmeterol (Advair 500-50 Diskus) 1 Each Disk.w.dev, 1 PUFF IH BID for asthma, #1 Ref 5 (Reported) Entered as Reported by: YOVANNY PAREDES on 10/09/201055 Last Taken: Unknown Dose on Unknown Date & Time Last Action: Converted on 10/09/201155 by MIC GUSTAFSON MD Gabapentin (Gabapentin ) 300 Mg Capsule, 900 MG PO TID for NEUROGENIC PAIN, (Reported) Entered as Reported by: YOVANNY PAREDES on 10/09/20 103 Last Taken: Unknown Dose on Unknown Date & Time Last Action: Continued on 10/09/201155 by MIC UGSTAFSON MD Isosorbide Mononitrate (Isosorbide Mononitrate Er) 30 Mg Tab.er.24h, 1 TAB PO DAILY for CAD, #30 Ref 5 (Reported) Entered as Reported by: YOVANNY PAREDES on 10/09/20 1039 Last Taken: Unknown Dose on Unknown Date & Time Last Action: Continued on 10/09/20 115 by MIC GUSTAFSON MD Lactobacillus Rhamnosus Gg (Culturelle) 1 Each Cap.sprink, 1 CAP PO BID for Diarrhea for 7 Days, #14 Prescribed by: FELIPA HUYNH MD on 10/12/20 1328 Linezolid (Zyvox) 600 Mg Tablet, 600 MG PO BID for Cellulitis/UTI for 7 Days, #14 Prescribed by: FELIPA HUYNH MD on 10/12/20 1328 Montelukast Sodium (Montelukast Sodium Tablet ) 10 Mg Tablet, 10 MG PO HS for FOR ASTHMA, Ref 0 (Reported) Entered as Reported by: YOVANNY PAREDES on 10/09/20 105 Last Taken: Unknown Dose on Unknown Date & Time Last Action: Continued on 10/09/201155 by MIC GUSTAFSON MD Ropinirole Hcl (Ropinirole Hcl) 1 Mg Tablet, 1 MG PO DAILY for RLS, (Reported) Entered as Reported by: YOVANNY PAREDES on 10/09/20 1050 Last Taken: Unknown Dose on Unknown Date & Time Last Action: Continued on 10/09/201155 by MIC GUSTAFSON MD Sodium Chloride (Saline Nasal [place]) 30 Ml [place], 1-2 SPRAY NS QID for nasal dryness, #30 (Reported) Entered as Reported by: YOVANNY PAREDES on 10/09/207 Last Taken: Unknown Dose on Unknown Date & Time Last Action: New Order on 10/09/201456 by YOVANNY PAREDES Warfarin Sodium (Warfarin Sodium) 1 Mg Tablet, 1 MG PO DAILY for recurrent DVT, (Reported) Entered as Reported by: YOVANNY PAREDES on 10/09/20 105 Last Taken: Unknown Dose on Unknown Date & Time Last Action: Continued on 10/09/201155 by MIC GUSTAFSON MD Warfarin Sodium (Warfarin Sodium) 10 Mg Tablet, 10 MG PO DAILY for DVT, (Reported) Entered as Reported by: YOVANNY PAREDES on 10/09/20 105 Last Taken: Unknown Dose on Unknown Date & Time Last Action: Continued on 10/09/201155 by MIC GUSTAFSON MD Zonisamide (Zonegran) 100 Mg Capsule, 2 CAP PO DAILY for seizure for 30 Days, #60 Ref 0 (Reported) Entered as Reported by: YOVANNY PAREDES on 10/09/20 1037 Last Taken: Unknown Dose on Unknown Date & Time Last Action: Continued on 10/09/20 1156 by MIC GUSTAFSON MD Scheduled PRN Acetaminophen (Acetaminophen) 500 Mg Tablet, 2 TAB PO PRN Q6HRS PRN for pain or fever for 15 Days, #60 Ref 0 (Reported) Entered as Reported by: YOVANNY PAREDES on 10/09/20 152 Last Taken: Unknown Dose on Unknown Date & Time Last Action: New Order on 10/09/201527 by YOVANNY PAREDES Albuterol Sulfate (Proair Hfa) 8.5 Gm Hfa.aer.ad, 2 PUFF IH PRN Q4-6HRS PRN for wheezing for 21 Days, #1 Ref 0 (Reported) Entered as Reported by: YOVANNY PAREDES on 10/09/20 1534 Last Taken: Unknown Dose on Unknown Date & Time Last Action: New Order on 10/09/20 153 by YOVANNY PAREDES Guaifenesin/Dextromethorphan (Robitussin Cough-Chest Dm Liq) 237 Ml Liquid, 5 ML PO Q4-6HRS PRN for CONSTIPATION, (Reported) Entered as Reported by: YOVANNY PAREDES on 10/09/20 152 Last Taken: Unknown Dose on Unknown Date & Time Last Action: New Order on 10/09/201527 by YOVANNY PAREDES Ondansetron Hcl (Zofran) 4 Mg Tablet, 8 MG PO BID PRN for NAUSEA/VOMITING, (Reported) Entered as Reported by: YOVANNY PAREDES on 10/09/20 1056 Last Taken: Unknown Dose on Unknown Date & Time Last Action: Converted on 10/09/20 1156 by MIC GUSTAFSON MD Tramadol Hcl (Tramadol Hcl) 50 Mg Tablet, 50 MG PO BID PRN for PAIN, Ref 0 (Reported) Entered as Reported by: YOVANNY PAREDES on 10/09/20 1050 Last Taken: Unknown Dose on Unknown Date & Time Last Action: Continued on 10/09/20 115 by MIC GUSTAFSON MD Justicifation of Admission Dx: Justifications for Admission: Justification of Admission Dx: Yes Respiratory Failure: Non-Cardiac Pulm Edema Cellulitis: Cellulitis RIFFEL,CHRISTOPHER S MD Oct 12, 2020 13:59
[2020-10-12] MEDS ORDERED: HEPARIN PF 500 UNIT/5 ML DISP.SYRIN. IVP ONE (14:45)
[2020-10-12 15:58] VITALS: BP 149/76
[2020-10-12] MEDS ORDERED: WARFARIN 5 MG TABLET. PO ONE (16:00)
--- NOTE | 2020-10-12 16:48 | NUR ---
SW following for discharge planning. Spoke with RN and reviewed chart. Pt from home with spouse. Pt COVID negative. Pt to discharge home today, self-care. Pt has home 02. No further SW needs at this time.
--- NOTE | 2020-10-12 17:58 | NUR ---
Pt was given discharge packet and instructed on what to do when home. IV was taken out, heart monitor was taken off, and pt's vital signs and labs were WNL leaving the unit. Pt had no questions or concerns.
[2020-10-12] MEDS ORDERED: LACTOBACILLUS RHAMNOSUS GG 1 CAPSULE. PO SCH (21:00)
--- NOTE | 2020-10-13 11:42 | EKG ---
[facility] [address] [place] [address] Test Date: 2020-10-08 Test Time: 16:15:29 Pat Name: ELDA ANDREWS Department: Room: [facility] Gender: F Screw Machine Hand: : 1960 Requested By: IBRAHIMA SALEH Order Number: [id number] Reading MD: Tad Barnett Measurements Intervals [place] Rate: 78 P: 39 FL: 156 QRS: -8 QRSD: 84 T: 41 QT: 376 QTc: 432 Interpretive Statements SINUS RHYTHM LEFTWARD AXIS QRS(T) CONTOUR ABNORMALITY CONSIDER INFERIOR MYOCARDIAL DAMAGE Electronically Signed On 10-13-2020 14:38:32 THERMOSTAT MACHINE TENDER by Tad Barnett
== END 2020-10-12 17:45 | disposition home or self-care (01) | DRG 177 ==
LOC: ER 15:59 → ED HOLD 18:00 → 6 SOUTH 21:04
PROVIDERS: ADMIT Internal Medicine; ATTEND Internal Medicine
DX: J15.6 Pneumonia due to other Gram-negative bacteria (principal); J96.21 Acute and chronic respiratory failure with hypoxia; I26.99 Other pulmonary embolism without acute cor pulmonale; L03.116 Cellulitis of left lower limb; J45.901 Unspecified asthma with (acute) exacerbation; J44.0 Chronic obstructive pulmonary disease with (acute) lower respiratory infection; C53.9 Malignant neoplasm of cervix uteri, unspecified; D86.9 Sarcoidosis, unspecified; E11.22 Type 2 diabetes mellitus with diabetic chronic kidney disease; E11.42 Type 2 diabetes mellitus with diabetic polyneuropathy; E11.51 Type 2 diabetes mellitus with diabetic peripheral angiopathy without gangrene; E21.0 Primary hyperparathyroidism; E66.01 Morbid (severe) obesity due to excess calories; E78.5 Hyperlipidemia, unspecified; F41.1 Generalized anxiety disorder; G43.909 Migraine, unspecified, not intractable, without status migrainosus; I12.9 Hypertensive chronic kidney disease with stage 1 through stage 4 chronic kidney disease, or unspecified chronic kidney disease; K42.9 Umbilical hernia without obstruction or gangrene; M19.90 Unspecified osteoarthritis, unspecified site; M79.7 Fibromyalgia; N18.30 Chronic kidney disease, stage 3 unspecified; F32.9 Major depressive disorder, single episode, unspecified; Z79.01 Long term (current) use of anticoagulants; Z80.1 Family history of malignant neoplasm of trachea, bronchus and lung; Z80.3 Family history of malignant neoplasm of breast; Z80.8 Family history of malignant neoplasm of other organs or systems; Z81.8 Family history of other mental and behavioral disorders; Z82.49 Family history of ischemic heart disease and other diseases of the circulatory system; Z82.5 Family history of asthma and other chronic lower respiratory diseases; Z83.3 Family history of diabetes mellitus; Z85.41 Personal history of malignant neoplasm of cervix uteri; Z86.711 Personal history of pulmonary embolism; Z86.718 Personal history of other venous thrombosis and embolism; Z86.73 Personal history of transient ischemic attack (TIA), and cerebral infarction without residual deficits; Z90.49 Acquired absence of other specified parts of digestive tract; Z90.5 Acquired absence of kidney; Z90.710 Acquired absence of both cervix and uterus; Z87.891 Personal history of nicotine dependence; Z95.820 Peripheral vascular angioplasty status with implants and grafts; Z88.8 Allergy status to other drugs, medicaments and biological substances; Z20.822 Contact with and (suspected) exposure to COVID-19
CPT/HCPCS: 36415; 70450; 71045; 74176; 80048; 80053; 80307; 81001; 82962; 83605; 83735; 83880; 84484; 85007; 85025; 85610; 87077; 87086; 87186; 87804; 93005; 93971; 94640; 94760; 96365; 96375; J1642; J2020; J2405; J2920; J2930; U0003; 99285-25; G0378; J7613; J7626